=== PATIENT | female | born 1980 | race Caucasian/White ===

== ENCOUNTER 2016-06-28 23:14 | Observation (INO) | payer OTHER ==
[2016-06-28] MEDS ORDERED: MORPHINE SULFATE 4 MG INJ IV ONE (23:44)
[2016-06-28] MEDS ORDERED: Sodium Chloride 0.9% 1000 ML 1,000 ML IV STA (23:44)
[2016-06-28] MEDS ORDERED: Zofran 4 MG/2 ML VIAL IV ONE (23:44)
[2016-06-28] MEDS ORDERED: Zofran 4 MG/2 ML VIAL ONE (23:49)
[2016-06-28] MEDS ORDERED: Sodium Chloride 0.9% 1000 ML 1,000 ML ONE (23:49)
[2016-06-28] MEDS ORDERED: MORPHINE SULFATE 4 MG INJ ONE (23:49)
--- NOTE | 2016-06-28 23:50 | ERPHSYRPT ---
- History of Present Illness Time Seen by Provider: 06/28/16 23:41 Historian: patient Exam Limitations: no limitations Patient Subjective Stated Complaint: Pt sts RUQ pain x 6 months intermittent in nature, worsening recently. Sts since with RUQ pain that is constant and sharp. Pain waxes and wanes from 3-7/10. Pt sts nausea with pain. Pt denies vomiting. Sts intermittent diarrhea, sts x 1 today. Pt sts has an appt for galbladder U/S on Tuesday at 0830. Triage Nursing Assessment: Pt alert, oriented, answers all questions appropriately. SKin p/w/d, resps non-labored. pt ambulatory to tx room, steady gait noted. Pt holding rt side abd, grimacing in pain. Physician History: This is a 36-year-old white female previously healthy arrives with complaint of right upper quadrant pain symptoms going on for 6 months she states this pain has been intermittent however for the past 8 days it has been fairly constant and progressively worse. She states she was seen in [place] [facility] and has an appointment scheduled for a gallbladder ultrasound in 2 days. She states that she continues to have pain in the right upper quadrant she has nausea no vomiting she has no diarrhea. Patient has not had any fevers. Past medical history is positive for depression. Past surgical history patient denies. Last menstrual period 3 weeks ago Timing/Duration: other (pain intermittent for 6 months worse past 8 days) Activities at Onset: none Quality: cramping Abdominal Pain Onset Location: RUQ Pain Radiation: epigastric Severity of Pain-Max: moderate Severity of Pain-Current: moderate Modifying Factors: Improves With: nothing. Worsens With: analgesics, antacids, breathing, coughing, defecating, eating, exercise, lying down, movement, palpation, rest, vomiting, position, walking, other Associated Symptoms: diarrhea, nausea, No back, No chest pain, No diaphoresis, No fever/chills, No fatigue, No headache, No heartburn, No loss of appetite, No neck pain, No rash, No shortness of breath, No syncope, No vomiting, No weakness Previous symptoms: recently seen (seen today by nurse practitioner in [facility]) Allergies/Adverse Reactions: No Known Drug Allergies Allergy (Unverified 06/28/16 23:48) Home Medications: Escitalopram Oxalate [Lexapro] 0 mg PO DAILY 06/28/16 [History] Immunizations Up to Date: Yes - Review of Systems Constitutional: No Fever, No Chills Eyes: No Symptoms Ears, Nose, & Throat: No Symptoms, No Ear Pain, No Ear Discharge, No Hearing Changes, No Tinnitus, No Nose Pain, No Nose Congestion, No Nose Discharge, No Sinus Drainage, No Epistaxis, No Mouth Pain, No Mouth Swelling, No Loose Teeth, No Throat Pain, No Throat Swelling, No Hoarse, No Painful Swallowing, No Snoring , No Stridor Respiratory: No Cough, No Dyspnea Cardiac: No Chest Pain, No Edema, No Syncope Abdominal/Gastrointestinal: Abdominal Pain, Nausea, Diarrhea, No Vomiting, No Constipation, No Hematemesis, No Hematochezia, No Melena, No Dysphagia, No Appetite Changes Genitourinary Symptoms: No Dysuria Musculoskeletal: No Back Pain, No Neck Pain Skin: No Rash Neurological: No Dizziness, No Focal Weakness, No Sensory Changes Psychological: No Symptoms Endocrine: No Symptoms All Other Systems: Reviewed and Negative - Past Medical History Psycho-Social History: Depression - Past Surgical History Past Surgical History: No - Social History Smoking Status: Never smoker Exposure to second hand smoke: No Drug Use: none Patient Lives Alone: No - Female History Hx Last Menstrual Period: 3 weeks ago - Nursing Vital Signs Nursing Vital Signs: Initial Vital Signs Temperature 98.9 F Temperature Source Oral Pulse Rate 67 Respiratory Rate 18 Blood Pressure [] 96/61 Pain Intensity 7 - Physical Exam General Appearance: mild distress Eye Exam: PERRL/EOMI, eyes nml inspection Ears, Nose, Throat Exam: normal ENT inspection, pharynx normal, moist mucous membranes Neck Exam: normal inspection, non-tender, supple, full range of motion Respiratory Exam: normal breath sounds, lungs clear, No respiratory distress Cardiovascular Exam: regular rate/rhythm, normal heart sounds Gastrointestinal/Abdomen Exam: soft, normal bowel sounds, tenderness (right upper quadrant tenderness), No distention, No guarding, No ecchymosis, No pulsatile mass, No rebound, No hernia, No hepatomegaly, No organomegaly, No splenomegaly, No bruit Back Exam: normal inspection, normal range of motion, No CVA tenderness, No vertebral tenderness Extremity Exam: normal inspection, normal range of motion, pelvis stable Neurologic Exam: alert, oriented x 3, cooperative, conduit mechanic II-XII nml as tested, normal mood/affect, nml cerebellar function, sensation nml, No motor deficits Skin Exam: normal color, warm, dry SpO2 Interpretation: normal (99%) SpO2: 99 Oxygen Delivery: Room Air - Course Nursing assessment & vital signs reviewed: Yes - CT Exams Abdomen/Pelvis CT Interpretation: Tele-radiologist Report, Other (CT abdomen and pelvis: impression: probable cholecystitis) Ordered Tests: Active Orders 24 hr Category Date Time Status Clean Catch Urine Specimen STAT Care 06/29/16 00:20 Active IV Insertion STAT Care 06/28/16 23:44 Active ABDOMEN AND PELVIS W CONTRAST [CT] Stat Exams 06/29/16 00:35 Taken Medication Summary Discontinued Medications Generic Name Dose Route Start Last Admin Trade Name Freq PRN Reason Stop Dose Admin Sodium Chloride 1,000 mls @ 999 mls/hr 06/28/16 23:44 06/29/16 00:01 Sodium Chloride 0.9% 1000 Ml IV 06/29/16 00:44 999 mls/hr .Q1H1M STA Administration Sodium Chloride Confirm 06/28/16 23:49 Sodium Chloride 0.9% 1000 Ml Administered 06/28/16 23:50 Dose 1,000 mls @ ud .ROUTE .STK-MED ONE Morphine Sulfate 4 mg 06/28/16 23:44 06/29/16 00:03 Morphine Sulfate 4 Mg Inj IV 06/28/16 23:45 4 mg STAT ONE Administration Morphine Sulfate Confirm 06/28/16 23:49 Morphine Sulfate 4 Mg Inj Administered 06/28/16 23:50 Dose 4 mg .ROUTE .STK-MED ONE Ondansetron HCl 4 mg 06/28/16 23:44 06/29/16 00:03 Zofran 4 Mg/2 Ml Vial IV 06/28/16 23:45 4 mg STAT ONE Administration Ondansetron HCl Confirm 06/28/16 23:49 Zofran 4 Mg/2 Ml Vial Administered 06/28/16 23:50 Dose 4 mg .ROUTE .STK-MED ONE Lab/Rad Data: Laboratory Result Diagrams 06/28/16 00:00 06/28/16 00:00 Laboratory Results 06/28/16 06/28/16 06/28/16 Range/Units 00:00 00:00 00:00 WBC 7.5 (4.0-10.5) K/mm3 RBC 4.40 (4.1-5.4) M/mm3 Hgb 12.1 (12.0-16.0) gm/dl Hct 37.3 (35-47) % MCV 84.8 (78-100) fl MCH 27.5 (26-32) pg MCHC 32.4 (32-36) g/dl RDW 14.8 H (11.5-14.0) % Plt Count 244 (150-450) K/mm3 MPV 11.3 H (6-9.5) fl Gran % 59.4 (36.0-66.0) % Lymphocytes % 25.8 (24.0-44.0) % Monocytes % 10.0 (0.0-12.0) % Eosinophils % 4.3 (0.00-5.0) % Basophils % 0.5 (0.0-0.4) % Basophils # 0.04 (0-0.4) Sodium 142 (136-145) mEq/L Potassium 3.5 (3.5-5.1) mEq/L Chloride 108 H (98-107) mEq/L Carbon Dioxide 22.0 (21-32) mEq/L Anion Gap 15.8 H (5-15) MEQ/L BUN 8 L (9-20) mg/dL Creatinine 1.04 (0.55-1.30) mg/dl Estimated GFR > 60 ML/MIN Glucose 93 (70-110) MG/DL Calcium 8.5 (8.5-10.1) mg/dL Total Bilirubin 0.8 (0.2-1.0) mg/dL AST 409 H (15-37) U/L ALT 636 H (12-78) U/L Alkaline Phosphatase 184 H (46-116) U/L Serum Total Protein 7.0 (6.4-8.2) gm/dL Albumin 3.5 (3.4-5.0) g/dL Amylase 47 (25-115) U/L Lipase 123 (73-393) U/L Serum , Qual NEGATIVE (Negative) Ur Collection Type Urine Color (YELLOW) Urine Appearance (CLEAR) Urine pH (5-6) Ur Specific [place] (1.005-1.025) Urine Protein (Negative) Urine Glucose (UA) (NEGATIVE) mg/dL Urine Ketones (NEGATIVE) Urine Nitrite (NEGATIVE) Urine Bilirubin (NEGATIVE) Urine Urobilinogen (0-1) mg/dL Urine WBC (Auto) (NEGATIVE) Urine RBC (Auto) (0-5) Paul/ul Urine Microscopic RBC (0-2) /HPF Ur Epithelial Cells (FEW) /HPF Urine Bacteria (NEGATIVE) /HPF Urine Mucus (NEGATIVE) /HPF Specimen Received 06/28/16 Range/Units 00:00 WBC (4.0-10.5) K/mm3 RBC (4.1-5.4) M/mm3 Hgb (12.0-16.0) gm/dl Hct (35-47) % MCV (78-100) fl MCH (26-32) pg MCHC (32-36) g/dl RDW (11.5-14.0) % Plt Count (150-450) K/mm3 MPV (6-9.5) fl Gran % (36.0-66.0) % Lymphocytes % (24.0-44.0) % Monocytes % (0.0-12.0) % Eosinophils % (0.00-5.0) % Basophils % (0.0-0.4) % Basophils # (0-0.4) Sodium (136-145) mEq/L Potassium (3.5-5.1) mEq/L Chloride (98-107) mEq/L Carbon Dioxide (21-32) mEq/L Anion Gap (5-15) MEQ/L BUN (9-20) mg/dL Creatinine (0.55-1.30) mg/dl Estimated GFR ML/MIN Glucose (70-110) MG/DL Calcium (8.5-10.1) mg/dL Total Bilirubin (0.2-1.0) mg/dL AST (15-37) U/L ALT (12-78) U/L Alkaline Phosphatase (46-116) U/L Serum Total Protein (6.4-8.2) gm/dL Albumin (3.4-5.0) g/dL Amylase (25-115) U/L Lipase (73-393) U/L Serum , Qual (Negative) Ur Collection Type CLEAN CATCH Urine Color CASEY (YELLOW) Urine Appearance CLEAR (CLEAR) Urine pH 5.5 (5-6) Ur Specific [place] >=1.030 (1.005-1.025) Urine Protein NEGATIVE (Negative) Urine Glucose (UA) NEGATIVE (NEGATIVE) mg/dL Urine Ketones NEGATIVE (NEGATIVE) Urine Nitrite NEGATIVE (NEGATIVE) Urine Bilirubin SMALL (NEGATIVE) Urine Urobilinogen 4 (0-1) mg/dL Urine WBC (Auto) NEGATIVE (NEGATIVE) Urine RBC (Auto) SMALL (0-5) Paul/ul Urine Microscopic RBC 2-5 (0-2) /HPF Ur Epithelial Cells FEW (FEW) /HPF Urine Bacteria FEW (NEGATIVE) /HPF Urine Mucus SLIGHT (NEGATIVE) /HPF Specimen Received [id number] - Progress Progress: improved Progress Note: 06/29/16 00:35 36-year-old white female arrives with complaint of right upper quadrant pain intermittently going on for 6 months which has become much worse over the past 8 days. Patient states she is nauseous she is not vomiting she has had diarrhea. On physical examination she has tenderness with palpation right upper quadrant. Patient's white count is normal hemoglobin and hematocrit are normal chemistry is remarkable for elevated liver enzymes including AST, a LT, and alkaline phosphatase. Amylase and lipase are both normal. Electrolytes are essentially normal. Patient is feeling somewhat better with the IV normal saline and morphine. I've asked the patient if she is taking a lot of Tylenol she says she is not. Will go ahead and obtain a CT of the patient's abdomen and pelvis with contrast. 06/29/16 01:39 Patient improved with IV fluids and morphine. CT of the abdomen and pelvis with contrast shows the gallbladder appears hyperemic and somewhat thickened suggesting cholecystitis clinical correlation was recommended. Patient is tender in the right upper quadrant and has been having pain for several months which has been coming increasingly severe over the past few days. I've discussed the case with Dr. Danielson patient's family physician. Will give patient Rocephin 1 g IV we will obtain observation bed for medical surgery, will place patient on IV fluids morphine and Zofran. And obtain surgical consult in the morning - Departure Time of Disposition: 01:41 Departure Disposition: Observation Clinical Impression: Right upper quadrant abdominal pain, Cholecystitis, Elevated liver enzymes Condition: Fair Critical Care Time: No Referrals: JENNI DANIELSON [Primary Care Provider] -
[2016-06-29 00:05] LABS: BASOPHIL % 0.5 % (0.0-0.4); Eosinophil % 4.3 % (0.00-5.0); Granulocytes % 59.4 % (36.0-66.0); Lymphocytes % 25.8 % (24.0-44.0); Mean Cell Volume 84.8 fl (78-100); Mean Corpuscular Hemoglobin 27.5 pg (26-32); Mean Platelet Volume 11.3 fl (6-9.5); Platelet Count 244 K/mm3 (150-450); Red Cell Distribution Width 14.8 % (11.5-14.0); White Blood Count 7.5 K/mm3 (4.0-10.5)
[2016-06-29 00:25] LABS: Collection Type CLEAN CATCH; Ph 5.5 (5-6)
[2016-06-29 00:26] LABS: ALBUMIN 3.5 g/dL (3.4-5.0); ALKALINE PHOSPHATASE 184 U/L (46-116); ANION GAP 15.8 MEQ/L (5-15); BILIRUBIN,TOTAL 0.8 mg/dL (0.2-1.0); BLOOD UREA NITROGEN 8 mg/dL (9-20); Bacteria FEW /HPF (NEGATIVE); CHLORIDE 108 mEq/L (98-107); COMPLETE URINE MICROSCOPIC? YES; Epithelial Cells FEW /HPF (FEW); Glucose 93 MG/DL (70-110); LIPASE 123 U/L (73-393); Mucus SLIGHT /HPF (NEGATIVE); Potassium 3.5 mEq/L (3.5-5.1); SGOT/AST 409 U/L (15-37); SGPT/ALT 636 U/L (12-78); SODIUM 142 mEq/L (136-145)
[2016-06-29] MEDS ORDERED: ROCEPHIN 1 Gm-D5w 50 ml Bag** 50 ML IV ONE ×2 (01:42→01:50)
[2016-06-29] MEDS ORDERED: Zofran 4 MG/2 ML VIAL IV PRN (02:11)
[2016-06-29] MEDS: D5W/0.45NS W/ 20mEq KCl 1000 ML 1,000 ML IV SCH ×2 (03:21→12:32)
[2016-06-29] MEDS: MORPHINE SULFATE 4 MG INJ IV PRN ×3 (05:06→16:12)
[2016-06-29 05:59] LABS: ALBUMIN 3.1 g/dL (3.4-5.0); ALKALINE PHOSPHATASE 174 U/L (46-116); ANION GAP 13.9 MEQ/L (5-15); BILIRUBIN,TOTAL 0.9 mg/dL (0.2-1.0); BLOOD UREA NITROGEN 6 mg/dL (9-20); CHLORIDE 107 mEq/L (98-107); Glucose 107 MG/DL (70-110); LIPASE 96 U/L (73-393); Potassium 3.7 mEq/L (3.5-5.1); SGOT/AST 398 U/L (15-37); SGPT/ALT 612 U/L (12-78); SODIUM 141 mEq/L (136-145); Total Protein 6.5 gm/dL (6.4-8.2)
[2016-06-29 06:01] LABS: BASOPHIL % 0.5 % (0.0-0.4); Granulocytes % 61.5 % (36.0-66.0); Lymphocytes % 26.6 % (24.0-44.0); Mean Cell Volume 86.1 fl (78-100); Mean Platelet Volume 11.9 fl (6-9.5); Monocytes % 7.4 % (0.0-12.0); Platelet Count 228 K/mm3 (150-450); Red Blood Count 4.25 M/mm3 (4.1-5.4); Red Cell Distribution Width 14.9 % (11.5-14.0); White Blood Count 6.2 K/mm3 (4.0-10.5)
[2016-06-29 06:23] LABS: Mean Corpuscular Hemoglobin 27.2 pg (26-32)
--- NOTE | 2016-06-29 08:15 | PCM.HP ---
History of Present Illness - Chief Complaint Chief Complaint: RUQ PAIN, CHOLECYSTITIES, ELEVATED LIVER ENZYMES History of Present Illness: is a 36 year old female pt of [facility] c/o 6 mo of intermittent RUQ/epigastric pain. It got much worse 4 d ago and she was unable to eat for the past 3 days. Pain was 2-8/10, sharp, waxing/waning and radiating to the back. Some occasional chest pain with the epigastric pain. No SOB. Temp to 99.9. Came to ER yesterday, found to have elevated LFTs and cholecystitis. Admitted for IVF, pain control, and surgery consult. Pain is better on pain meds. No vomiting since admission. - Review of Systems Respiratory: Short Of Breath Cardiac: Chest Pain (occ with the epigastric pain) Abdominal/Gastrointestinal: Abdominal Pain, Nausea, Vomiting, Diarrhea, Appetite Changes Psychological: Depression, No Suicidal Ideations All Other Systems: Reviewed and Negative Medications & Allergies Home Medications: Home Medication List Acetaminophen 325 mg [Tylenol 325 mg] 650 mg PO Q4HPRN PRN 06/29/16 [ History Confirmed 06/29/16] Citalopram Hydrobromide [ceLEXa] 40 mg PO DAILY 06/29/16 [History Confirmed 11/07] Ondansetron [Ondansetron Odt] 4 mg PO Q8HPRN PRN 06/29/16 [History Confirmed 11/07] Ranitidine HCl [Zantac] 150 mg PO BID 06/29/16 [History Confirmed 06/29/16] Allergies/Adverse Reactions: Allergies Allergy/AdvReac Type Severity Reaction Status Date / Time No Known Drug Allergies Allergy Verified 06/29/16 03:12 - Past Medical History Past Medical History: Yes Neurological History: Migraines ENT History: No Pertinent History Cardiac History: No Pertinent History Respiratory History: No Pertinent History Endocrine Medical History: No Pertinent History Musculoskelatal History: No Pertinent History GI Medical History: No Pertinent History History: No Pertinent History Pyscho-Social History: Depression Reproductive Disorders: No Pertinent History - Female History Hx Last Menstrual Period: 3 weeks ago Are you now?: No - Past Surgical History Past Surgical History: No - Social History Smoking Status: Former smoker Exposure to second hand smoke: No Alcohol: None Drug Use: none - Physical Exam Vital Signs: Vital Signs - 24 hr Temp Pulse Resp BP Pulse Ox 06/29/16 07:29 98.6 F 68 18 129/76 97 06/29/16 07:00 98.6 F 68 18 129/76 97 06/29/16 04:00 98.1 F 61 18 102/64 95 06/29/16 02:36 97.4 F 67 18 118/78 06/29/16 01:48 65 20 104/68 96 06/29/16 01:42 99 06/29/16 01:27 67 18 96/61 97 06/29/16 00:06 58 L 16 100/55 95 06/28/16 23:19 98.9 F 74 16 119/63 99 General Appearance: no apparent distress Neurologic Exam: alert, oriented x 3, cooperative Eye Exam: eyes nml inspection Neck Exam: normal inspection, non-tender, No lymphadenopathy Respiratory Exam: normal breath sounds, lungs clear, No crackles/rales, No rhonchi, No wheezing Cardiovascular Exam: regular rate/rhythm, normal heart sounds, No murmur Gastrointestinal/Abdomen Exam: soft, normal bowel sounds, tenderness (epigastrum , RUQ), No guarding, No rebound Back Exam: normal inspection, No CVA tenderness Extremity Exam: normal inspection, No pedal edema, No swelling Skin Exam: normal color, warm, dry Results - Labs Lab/Micro Results: Lab Results-Last 24 Hours 06/29/16 06/29/16 Range/Units 05:10 05:10 WBC 6.2 (4.0-10.5) K/mm3 RBC 4.25 (4.1-5.4) M/mm3 Hgb 11.6 L (12.0-16.0) gm/dl Hct 36.6 (35-47) % MCV 86.1 (78-100) fl MCH 27.2 (26-32) pg MCHC 31.7 L (32-36) g/dl RDW 14.9 H (11.5-14.0) % Plt Count 228 (150-450) K/mm3 MPV 11.9 H (6-9.5) fl Gran % 61.5 (36.0-66.0) % Lymphocytes % 26.6 (24.0-44.0) % Monocytes % 7.4 (0.0-12.0) % Eosinophils % 4.0 (0.00-5.0) % Basophils % 0.5 (0.0-0.4) % Basophils # 0.03 (0-0.4) Sodium 141 (136-145) mEq/L Potassium 3.7 (3.5-5.1) mEq/L Chloride 107 (98-107) mEq/L Carbon Dioxide 24.0 (21-32) mEq/L Anion Gap 13.9 (5-15) MEQ/L BUN 6 L (9-20) mg/dL Creatinine 0.93 (0.55-1.30) mg/dl Estimated GFR > 60 ML/MIN Glucose 107 (70-110) MG/DL Calcium 7.9 L (8.5-10.1) mg/dL Total Bilirubin 0.9 (0.2-1.0) mg/dL AST 398 H (15-37) U/L ALT 612 H (12-78) U/L Alkaline Phosphatase 174 H (46-116) U/L Serum Total Protein 6.5 (6.4-8.2) gm/dL Albumin 3.1 L (3.4-5.0) g/dL Amylase 42 (25-115) U/L Lipase 96 (73-393) U/L Assessment/Plan (1) Cholecystitis Current Visit: Yes Status: Acute Assessment & Plan: Surgery consulted, thank you. Pt is on IV rocephin. Code(s): K81.9 - CHOLECYSTITIS, UNSPECIFIED (2) Elevated liver enzymes Current Visit: Yes Status: Acute Assessment & Plan: slight improvement this morning. Code(s): R74.8 - ABNORMAL LEVELS OF OTHER SERUM ENZYMES
--- NOTE | 2016-06-29 08:58 | XRAY ---
Indication: Right upper quadrant pain. Multiple contiguous axial images obtained through the abdomen and pelvis using 80 cc Isovue 370 contrast only. Comparison: None Lung bases demonstrates minimal bibasilar dependent atelectasis. Heart is not enlarged. Stomach is fluid distended. Noncontrasted bowel loops appear nonobstructed. Normal appendix. No free fluid/air. Multiple bilateral pelvic phleboliths. Gallbladder demonstrates abnormal wall thickening/enhancement with tiny pericholecystic fluid but no gallstones favoring acalculous cholecystitis. No abnormal biliary distention. Remaining liver, pancreas, spleen, adrenal glands, kidneys, ureters, bladder, uterus, and aorta appear unremarkable. No pathologic retroperitoneal lymphadenopathy. Osseous structures intact. Impression: CT features as described favoring acalculous cholecystitis. Comment: Preliminary interpretation was made by [facility]. No discrepancy. CT DI 23.27
[2016-06-29] MEDS ORDERED: ceLEXa 20 MG PO SCH (10:00)
[2016-06-29] MEDS ORDERED: Pepcid 20 MG PO SCH (10:00)
[2016-06-29] MEDS ORDERED: NON-FORMULARY ITEM (Citalopram Hydrobromide [Celexa] 40 MG) PO SCH (10:00)
[2016-06-29 11:50] VITALS: O2SAT 99
[2016-06-29] MEDS ORDERED: Pepcid 20 MG VIAL IV SCH (14:45)
[2016-06-29] MEDS ORDERED: Sensorcaine 0.25% 10 ML ONE (14:50)
[2016-06-29] MEDS ORDERED: Lactated Ringers 1,000 ML IV ONE (14:50)
[2016-06-29] MEDS ORDERED: Lactated Ringers 1,000 ML IV SCH (15:00)
[2016-06-29] MEDS ORDERED: MEFOXIN 2 GM PREMIX** 50 ML IV SCH (15:00)
--- NOTE | 2016-06-29 15:29 | CONS ---
CONSULT DATE: 06/29/2016 I just found out about this. The patient was apparently admitted during the night. It does not sound like Dr. Guan who was sheet rock installation helper was called. Our office was not called. I was on my way down here to do another procedure and they told us about the surgical consult. HISTORY: Unfortunately, we were not notified of the patient earlier. White blood cell count 6.2, hemoglobin 11.6, PLT 228,000. ALT is 612, AST 398, bilirubin 0.9, alkaline phosphatase elevated at 74. Amylase and lipase were okay. She had a CT scan that did not show any stones, had a little bit of wall thickening. Apparently she did not have an ultrasound done this morning. PAST MEDICAL HISTORY: She denies any chronic illnesses. She had some depression in the past. PAST SURGICAL HISTORY: She denies any. HOME MEDICATIONS: She has been on Lexapro. ALLERGIES: NKDA. FAMILY HISTORY: Negative in regards to this problem. SOCIAL HISTORY: No smoking or alcohol abuse. REVIEW OF SYSTEMS: Twelve systems reviewed per admission assessment. PHYSICAL EXAMINATION: GENERAL: No acute distress. HEENT: Sclera nonicteric. NECK: No JVD. CHEST: Equal excursion, nonlabored breathing. CVS: Regular rate and rhythm. ABDOMEN: Soft, some mild tenderness epigastrium right upper quadrant. No peritoneal signs. EXTREMITIES: No edema. NEURO: Alert, moving extremities symmetrically. No gross motor deficits noted. IMPRESSION: Acute abdominal pain question biliary colic, question cholecdocholithiasis, acute exacerbation of chronic cholecystitis but her symptoms has been going on for six months, or whether she otherwise has hepatitis or other etiology is unclear. She needs ultrasound. She ERCP. She very well may need transferred to [facility] for ERCP availability. Otherwise eventually if she does have gallstones and her duct is clear eventually down the road consider cholecystectomy. Risk of bleeding, infection, trocar injury or hernia, small risk of bowel, bladder, blood vessel injury, small risk of bile leak, bile duct injury, retained stone or sludge possibly requiring further procedure either open or ERCP, general risk of anesthesia, deep venous thrombosis, pulmonary embolism, pneumonia, risk of aches, pains, bloating, constipation and/or loose stools but not limited to. She understands. Will check a STAT ultrasound of the gallbladder, STAT ERCP and she may need transfer to [facility]. Again, we were not notified of this patient until now.
--- NOTE | 2016-06-29 15:52 | XRAY ---
Indication: Right upper quadrant pain. Cholecystitis suggested on same-day CT abdomen/pelvis study. Elevated liver enzymes. Conventional MRCP performed. Comparison: None Gallbladder normally distended with wall thickening up to 4 mm with tiny pericholecystic fluid. A few tiny gravel/sludge in the dependent portion near the neck of the gallbladder. No abnormal intra-or extrahepatic biliary distention. Pancreatic duct not distended. Remaining visualized portions of the liver, pancreas, spleen, adrenal glands, kidneys, aorta, and IVC appear unremarkable. Visualized stomach and bowel loops appear nonobstructed. No free fluid. Impression: Tiny gravel/sludge with wall thickening and pericholecystic fluid favoring acute cholecystitis. No abnormal biliary distention or choledochal stone.
--- NOTE | 2016-06-29 15:54 | XRAY ---
Indication: Right upper quadrant pain. Two-dimensional right upper quadrant abdominal sonogram performed. Comparison: None Gallbladder normally distended with tiny gallstones/gravel in the dependent portion. Gallbladder wall is thickened measuring 4.3 mm. No pericholecystic fluid. Common bile duct measures 4.3 mm. Remaining visualized portions of the liver, pancreas, and right kidney appear sonographically normal. Right kidney measures 10.1 cm in length. No ascites. Impression: Tiny gallstones/gravel with wall thickening favoring cholecystitis.
[2016-06-29 16:27] VITALS: BP 134/89; PULSE 69
== END 2016-06-29 19:17 | disposition short-term general hospital (02) ==
LOC: ED 23:14 → MED SURG 06-29 02:03
PROVIDERS: ADMIT Family Medicine; ATTEND Family Medicine
DX: K81.9 Cholecystitis, unspecified (principal); R74.8 Abnormal levels of other serum enzymes; Z79.899 Other long term (current) drug therapy
CPT/HCPCS: 36000; 36415; 74177; 74181; 76705; 80053; 81000; 82150; 83690; 84484; 84703; 85025; 96360; 96361; 96365; 96374; 96375; 99285; G0378; J0694; J0696; J2270; J2405; A9270-GY

== ENCOUNTER 2018-03-08 09:39 | Emergency (ER) | payer OTHER ==
[2018-03-08] MEDS ORDERED: Sodium Chloride 0.9% 1000 ML 1,000 ML IV STA (10:45)
[2018-03-08 11:09] LABS: Appearance SLIGHTLY CLOUDY (CLEAR); Bacteria RARE /HPF (NEGATIVE); Bilirubin NEGATIVE (NEGATIVE); Blood SMALL Ery/ul (0-5); Epithelial Cells FEW /HPF (FEW); Glucose NEGATIVE (NEGATIVE); Hyaline Casts 0-2 /LPF (0-2); Ketones NEGATIVE (NEGATIVE); Leukocyte Esterase NEGATIVE (NEGATIVE); Mucus SLIGHT /HPF (NEGATIVE); Nitrite NEGATIVE (NEGATIVE); Protein,Urine Dip NEGATIVE (Negative); RBC 0-2 /HPF (0-2); Specific Gravity 1.001 (1.005-1.025); Urobilinogen NEGATIVE mg/dL (0-1)
[2018-03-08] MEDS ORDERED: Sodium Chloride 0.9% 1000 ML 1,000 ML ONE (11:16)
[2018-03-08 11:21] VITALS: O2SAT 98
[2018-03-08] MEDS ORDERED: Phenergan 25 MG INJ IV ONE (11:24)
[2018-03-08] MEDS ORDERED: Phenergan 25 MG INJ ONE (11:28)
--- NOTE | 2018-03-08 11:28 | ERPHSYRPT ---
- History of Present Illness Time Seen by Provider: 03/08/18 11:24 Historian: patient Exam Limitations: no limitations Patient Subjective Stated Complaint: STATES DEVELOPED LEFT LATERAL SIDE PAIN ONE MONTH AGO AND IT GOT WORSE YESTERDAY WITH SWELLING. ALSO HAVING SOME NAUSEA. Triage Nursing Assessment: AMBULATED TO ROOM PER SELF. SKIN W/D, COLOR NORMAL, RESP EASY. HOLDING LEFT SIDE. LEFT SIDE TENDER, SLIGHT SWELLING NOTED. INCREASE PAIN WITH MOVEMENT. Physician History: 37-year-old white female with history of migraines and depression Patient arrives with complaint of pain in her left lateral lower side states she feels swollen symptoms for one month worse today No vomiting no diarrhea. Past medical history includes migraines, depression. Past surgical history includes cholecystectomy. Social history patient denies tobacco alcohol or illicit drug use Timing/Duration: other (symptoms for a month worse today) Quality: aching, cramping Abdominal Pain Onset Location: LLQ, other (left lateral side) Pain Radiation: no radiation Severity of Pain-Max: moderate Severity of Pain-Current: moderate Modifying Factors: Improves With: movement Associated Symptoms: No back, No chest pain, No diaphoresis, No diarrhea, No fever/chills, No fatigue, No headache, No heartburn, No loss of appetite, No nausea, No neck pain, No rash, No shortness of breath, No syncope, No vomiting, No weakness Previous symptoms: no prior history Allergies/Adverse Reactions: No Known Drug Allergies Allergy (Verified 03/08/18 09:54) Home Medications: Fluoxetine HCl [Prozac] 40 mg PO DAILY 03/08/18 [History] Hx Tetanus, Diphtheria Vaccination/Date Given: Yes Hx Influenza Vaccination/Date Given: Yes Hx Pneumococcal Vaccination/Date Given: No Immunizations Up to Date: No - Review of Systems Constitutional: No Fever, No Chills Eyes: No Symptoms Ears, Nose, & Throat: No Symptoms Respiratory: No Cough, No Dyspnea Cardiac: No Chest Pain, No Edema, No Syncope Abdominal/Gastrointestinal: Abdominal Pain (left lateral abdominal pain more on side), No Nausea, No Vomiting, No Diarrhea, No Constipation, No Hematemesis, No Hematochezia, No Melena, No Dysphagia, No Appetite Changes Genitourinary Symptoms: No Dysuria Musculoskeletal: No Back Pain, No Neck Pain Skin: No Rash Neurological: No Dizziness, No Focal Weakness, No Sensory Changes Psychological: No Symptoms Endocrine: No Symptoms All Other Systems: Reviewed and Negative - Past Medical History Pertinent Past Medical History: Yes Neurological History: Migraines ENT History: No Pertinent History Cardiac History: No Pertinent History Respiratory History: No Pertinent History Endocrine Medical History: No Pertinent History Musculoskeletal History: No Pertinent History GI Medical History: No Pertinent History History: No Pertinent History Psycho-Social History: Depression Female Reproductive Disorders: No Pertinent History - Past Surgical History Past Surgical History: Yes Gastrointestinal: Cholecystectomy - Social History Smoking Status: Never smoker Exposure to second hand smoke: No Drug Use: none Patient Lives Alone: No - Female History Hx Last Menstrual Period: TWO WEEKS AGO Hx Now: No - Nursing Vital Signs Nursing Vital Signs: Initial Vital Signs Temperature 98.7 F 03/08/18 09:44 Pulse Rate 84 03/08/18 09:44 Respiratory Rate 16 03/08/18 09:44 Blood Pressure 157/82 03/08/18 09:44 O2 Sat by Pulse Oximetry 99 03/08/18 09:44 Pain Scale Pain Intensity 5 - Physical Exam General Appearance: mild distress Eye Exam: PERRL/EOMI, eyes nml inspection Ears, Nose, Throat Exam: normal ENT inspection, pharynx normal, moist mucous membranes Neck Exam: normal inspection, non-tender, supple, full range of motion Respiratory Exam: normal breath sounds, lungs clear, No respiratory distress Cardiovascular Exam: regular rate/rhythm, normal heart sounds, capillary refill <2 sec Gastrointestinal/Abdomen Exam: soft, normal bowel sounds, tenderness (tender left lateral abdomen with palpation), other (left lower lateral abdomen firm and tender with palpation.) Back Exam: normal inspection, normal range of motion, No CVA tenderness, No vertebral tenderness Extremity Exam: normal inspection, normal range of motion, pelvis stable Neurologic Exam: alert, oriented x 3, cooperative, 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 Status post cholecyst without complications) Ordered Tests: Active Orders 24 hr Category Date Time Status IV Insertion STAT Care 03/08/18 10:45 Active ABDOMEN AND PELVIS W CONTRAST [CT] Stat Exams 03/08/18 12:04 Completed AMYLASE Stat Lab 03/08/18 11:10 Completed CBC W DIFF Stat Lab 03/08/18 11:10 Completed CMP Stat Lab 03/08/18 11:10 Completed HCG QUALITATIVE,SERUM Stat Lab 03/08/18 11:10 Completed LIPASE Stat Lab 03/08/18 11:10 Completed UA W/RFX UR CULTURE Stat Lab 03/08/18 10:56 Completed Medication Summary Discontinued Medications Generic Name Dose Route Start Last Admin Trade Name Freq PRN Reason Stop Dose Admin Sodium Chloride 1,000 mls @ 999 mls/hr 03/08/18 10:45 03/08/18 12:27 Sodium Chloride 0.9% 1000 Ml IV 03/08/18 11:45 Infused .Q1H1M STA Infusion Sodium Chloride Confirm 03/08/18 11:16 Sodium Chloride 0.9% 1000 Ml Administered 03/08/18 11:17 Dose 1,000 mls @ ud .ROUTE .STK-MED ONE Promethazine HCl 12.5 mg 03/08/18 11:24 03/08/18 11:54 Phenergan 25 Mg Inj IV 03/08/18 11:25 12.5 mg STAT ONE Administration Promethazine HCl Confirm 03/08/18 11:28 Phenergan 25 Mg Inj Administered 03/08/18 11:29 Dose 25 mg .ROUTE .STK-MED ONE Lab/Rad Data: Laboratory Result Diagrams 03/08/18 11:10 03/08/18 11:10 Laboratory Results 03/08/18 03/08/18 03/08/18 Range/Units 11:10 11:10 11:10 WBC 6.5 (4.0-10.5) K/mm3 RBC 4.58 (4.1-5.4) M/mm3 Hgb 12.7 (12.0-16.0) gm/dl Hct 39.2 (35-47) % MCV 85.6 (78-100) fl MCH 27.7 (26-32) pg MCHC 32.4 (32-36) g/dl RDW 14.0 (11.5-14.0) % Plt Count 240 (150-450) K/mm3 MPV 11.4 H (6-9.5) fl Gran % 54.5 (36.0-66.0) % Eos # (Auto) 0.39 (0-0.5) Absolute Lymphs (auto) 2.01 (1.0-4.6) Absolute Monos (auto) 0.55 (0.0-1.3) Lymphocytes % 30.8 (24.0-44.0) % Monocytes % 8.4 (0.0-12.0) % Eosinophils % 6.0 H (0.00-5.0) % Basophils % 0.3 (0.0-0.4) % Absolute Granulocytes 3.56 (1.4-6.9) Basophils # 0.02 (0-0.4) Sodium 142 (137-145) mmol/L Potassium 3.6 (3.5-5.1) mmol/L Chloride 106 (98-107) mmol/L Carbon Dioxide 26 (22-30) mmol/L Anion Gap 14.0 (5-15) MEQ/L BUN 8 (7-17) mg/dL Creatinine 0.71 (0.52-1.04) mg/dL Estimated GFR > 60.0 ML/MIN Glucose 75 (74-106) mg/dL Calcium 9.3 (8.4-10.2) mg/dL Total Bilirubin 0.50 (0.2-1.3) mg/dL AST 64 H (14-36) U/L ALT 63 H (0-35) U/L Alkaline Phosphatase 87 (38-126) U/L Serum Total Protein 8.2 (6.3-8.2) g/dL Albumin 4.7 (3.5-5.0) g/dL Amylase 59 (30-110) U/L Lipase 39 (23-300) U/L Serum , Qual NEGATIVE (Negative) Urine Color (YELLOW) Urine Appearance (CLEAR) Urine pH (5-6) Ur Specific Monette (1.005-1.025) Urine Protein (Negative) Urine Ketones (NEGATIVE) Urine Blood (0-5) Paul/ul Urine Nitrite (NEGATIVE) Urine Bilirubin (NEGATIVE) Urine Urobilinogen (0-1) mg/dL Ur Leukocyte Esterase (NEGATIVE) Urine WBC (Auto) (0-5) /HPF Urine RBC (Auto) (0-2) /HPF U Hyaline Cast (Auto) (0-2) /LPF U Epithel Cells (Auto) (FEW) /HPF Urine Bacteria (Auto) (NEGATIVE) /HPF Urine Mucus (Auto) (NEGATIVE) /HPF Urine Culture Reflexed (NO) Urine Glucose (NEGATIVE) mg/dL 03/08/18 Range/Units 10:56 WBC (4.0-10.5) K/mm3 RBC (4.1-5.4) M/mm3 Hgb (12.0-16.0) gm/dl Hct (35-47) % MCV (78-100) fl MCH (26-32) pg MCHC (32-36) g/dl RDW (11.5-14.0) % Plt Count (150-450) K/mm3 MPV (6-9.5) fl Gran % (36.0-66.0) % Eos # (Auto) (0-0.5) Absolute Lymphs (auto) (1.0-4.6) Absolute Monos (auto) (0.0-1.3) Lymphocytes % (24.0-44.0) % Monocytes % (0.0-12.0) % Eosinophils % (0.00-5.0) % Basophils % (0.0-0.4) % Absolute Granulocytes (1.4-6.9) Basophils # (0-0.4) Sodium (137-145) mmol/L Potassium (3.5-5.1) mmol/L Chloride (98-107) mmol/L Carbon Dioxide (22-30) mmol/L Anion Gap (5-15) MEQ/L BUN (7-17) mg/dL Creatinine (0.52-1.04) mg/dL Estimated GFR ML/MIN Glucose (74-106) mg/dL Calcium (8.4-10.2) mg/dL Total Bilirubin (0.2-1.3) mg/dL AST (14-36) U/L ALT (0-35) U/L Alkaline Phosphatase (38-126) U/L Serum Total Protein (6.3-8.2) g/dL Albumin (3.5-5.0) g/dL Amylase (30-110) U/L Lipase (23-300) U/L Serum , Qual (Negative) Urine Color COLORLESS (YELLOW) Urine Appearance SLIGHTLY CLOUDY (CLEAR) Urine pH 6.0 (5-6) Ur Specific Monette 1.001 (1.005-1.025) Urine Protein NEGATIVE (Negative) Urine Ketones NEGATIVE (NEGATIVE) Urine Blood SMALL (0-5) Paul/ul Urine Nitrite NEGATIVE (NEGATIVE) Urine Bilirubin NEGATIVE (NEGATIVE) Urine Urobilinogen NEGATIVE (0-1) mg/dL Ur Leukocyte Esterase NEGATIVE (NEGATIVE) Urine WBC (Auto) NONE (0-5) /HPF Urine RBC (Auto) 0-2 (0-2) /HPF U Hyaline Cast (Auto) 0-2 (0-2) /LPF U Epithel Cells (Auto) FEW (FEW) /HPF Urine Bacteria (Auto) RARE (NEGATIVE) /HPF Urine Mucus (Auto) SLIGHT (NEGATIVE) /HPF Urine Culture Reflexed NO (NO) Urine Glucose NEGATIVE (NEGATIVE) mg/dL - Progress Progress: improved Progress Note: 03/08/18 13:28 37-year-old white female arrives with complaint of pain in her left lateral abdomen symptoms for one month. She feels like the area is hard with palpation she has not had any nausea no vomiting. I've ordered CT of the abdomen and pelvis with contrast, this is essentially normal. Patient was given IV normal saline Phenergan. CBC CMP hCG UA essentially normal. Will discharge patient will write for a small amount of Abrams for pain. Patient will need to follow-up with her family doctor. 03/08/18 13:37 Inspect report queried on this patient no evidence of narcotic abuse or recurrent narcotic prescriptions - Departure Time of Disposition: 13:29 Departure Disposition: Home Clinical Impression: Abdominal pain Qualifiers: Abdominal location: unspecified location Qualified Code(s): R10.9 - Unspecified abdominal pain Condition: Fair Critical Care Time: No Referrals: JENNI MCNAMARA [Primary Care Provider] - Additional Instructions: Return home. Cold packs to area 24-48 hours. Abrams as prescribed for pain. Follow-up with your family doctor. Clear fluids only 24-48 hours if abdominal pain. Return for acute distress or for severe symptoms. Prescriptions: Hydrocodone/APAP 5-325 Tab^^^ [Abrams 5-325 Tablet^^^] 1 tab PO Q4-6HPRN PRN #10 tablet MDD 6 PRN Reason: Pain
[2018-03-08 11:48] LABS: BASOPHIL % 0.3 % (0.0-0.4); Basophil (Absolute #) 0.02 (0-0.4); Eosinophil (Absolute #) 0.39 (0-0.5); Granulocytes % 54.5 % (36.0-66.0); Hematocrit 39.2 % (35-47); Hemoglobin 12.7 gm/dl (12.0-16.0); Lymphocyte (Absolute #) 2.01 (1.0-4.6); Lymphocytes % 30.8 % (24.0-44.0); Mean Cell Volume 85.6 fl (78-100); Mean Corpuscular Hemoglobin 27.7 pg (26-32); Mean Corpuscular Hgb Concent. 32.4 g/dl (32-36); Mean Platelet Volume 11.4 fl (6-9.5); Monocyte (Absolute #) 0.55 (0.0-1.3); Monocytes % 8.4 % (0.0-12.0); Platelet Count 240 K/mm3 (150-450); Red Blood Count 4.58 M/mm3 (4.1-5.4); White Blood Count 6.5 K/mm3 (4.0-10.5)
[2018-03-08 11:50] LABS: ALBUMIN 4.7 g/dL (3.5-5.0); ALKALINE PHOSPHATASE 87 U/L (38-126); AMYLASE 59 U/L (30-110); BLOOD UREA NITROGEN 8 mg/dL (7-17); CHLORIDE 106 mmol/L (98-107); Calcium 9.3 mg/dL (8.4-10.2); Carbon Dioxide 26 mmol/L (22-30); Creatinine 1 0.71 mg/dL (0.52-1.04); Glucose 75 mg/dL (74-106); LIPASE 39 U/L (23-300); SGOT/AST 64 U/L (14-36); SGPT/ALT 63 U/L (0-35); SODIUM 142 mmol/L (137-145); Total Protein 8.2 g/dL (6.3-8.2)
[2018-03-08 11:52] LABS: Potassium 3.6 mmol/L (3.5-5.1)
--- NOTE | 2018-03-08 13:17 | XRAY ---
Indication: Right abdominal pain. Status post cholecystectomy 18 months ago. Multiple contiguous axial images obtained through the abdomen and pelvis using 80 cc Isovue 370 contrast only. Comparison: June 29, 2016. Lung bases demonstrates minimal bibasilar dependent atelectasis. No infiltrate or effusion. Heart is not enlarged. Noncontrasted stomach and bowel loops appear nonobstructed. Normal appendix. Mild splenic flexure colonic diverticulosis without diverticulitis. Interval cholecystectomy. No free fluid/air. Remaining liver, pancreas, spleen, adrenal glands, kidneys, ureters, bladder, and aorta appear normal in CT appearance and attenuation. No pathologic retroperitoneal lymphadenopathy. Osseous structures intact. No ventral or inguinal hernias. Impression: 1. Status post cholecystectomy without complications. 2. Mild colonic diverticulosis. 3. Remaining CT abdomen/pelvis with contrast exam is negative. CT DI 22.85
[2018-03-08 14:02] VITALS: BP 121/74; PULSE 73
== END 2018-03-08 14:01 | disposition home or self-care (01) ==
LOC: ED 09:39
DX: R10.32 Left lower quadrant pain (principal); F32.9 Major depressive disorder, single episode, unspecified
CPT/HCPCS: 36000; 36415; 74177; 80053; 81001; 81025; 82150; 83690; 85025; 96360; 96374; 99284; J2550

== ENCOUNTER 2020-05-10 00:44 | Emergency (ER) | payer OTHER ==
[2020-05-10] MEDS ORDERED: Nitrostat 0.4 MG (ED) SL ONE ×2 (01:05→01:10)
[2020-05-10] MEDS ORDERED: BABY ASPIRIN 81 MG CHEW PO ONE (01:05)
[2020-05-10] MEDS ORDERED: BABY ASPIRIN 81 MG CHEW ONE (01:10)
--- NOTE | 2020-05-10 01:11 | ERPHSYRPT ---
- History of Present Illness Time Seen by Provider: 05/10/20 01:00 Historian: patient Exam Limitations: no limitations Physician History: Patient is a 39-year-old female with no real medical history except for depression that presents with sharp upper back pain that radiate towards the front to her mid chest. Moderate at the time but proved currently. Did make patient short of breath but denies any diaphoresis or cough. Denies fever or any symptoms. She stated that she had this upper back pain between the shoulders couple of days ago which resolved. It appeared to come back but now radiated towards the front which concerned her. Patient has had cholecystect fadi. Denies any chronic medical problems. No high blood pressure. No smoking. No high cholesterol. Timing/Duration: today Activities at Onset: rest Quality: sharpness, tightness Location: substernal, back Chest Pain Radiation: no radiation Severity of Pain-Max: moderate Severity of Pain-Current: mild Modifying Factors: Improves With: nothing Associated Symptoms: shortness of breath, back pain Prior Chest Pain/Cardiac Workup: no prior chest pain Nitro Today/Relief: no nitro taken today Aspirin Treatment Today: no aspirin today Allergies/Adverse Reactions: No Known Drug Allergies Allergy (Verified 05/10/20 00:47) Home Medications: Fluoxetine HCl [Prozac] 40 mg PO DAILY 03/08/18 [History] Hx Tetanus, Diphtheria Vaccination/Date Given: Yes Hx Influenza Vaccination/Date Given: Yes Hx Pneumococcal Vaccination/Date Given: No - Review of Systems Constitutional: No Fever, No Chills Eyes: No Symptoms Ears, Nose, & Throat: No Symptoms Respiratory: Dyspnea, No Cough Cardiac: Chest Pain, No Edema, No Syncope Abdominal/Gastrointestinal: No Abdominal Pain, No Nausea, No Vomiting, No Diarrhea Genitourinary Symptoms: No Dysuria Musculoskeletal: Back Pain, No Neck Pain Skin: No Rash Neurological: No Dizziness, No Focal Weakness, No Sensory Changes Psychological: No Symptoms Endocrine: No Symptoms All Other Systems: Reviewed and Negative - Past Medical History Pertinent Past Medical History: Yes Neurological History: Migraines ENT History: No Pertinent History Cardiac History: No Pertinent History Respiratory History: No Pertinent History Endocrine Medical History: No Pertinent History Musculoskeletal History: No Pertinent History GI Medical History: No Pertinent History History: No Pertinent History Psycho-Social History: Depression Female Reproductive Disorders: No Pertinent History - Past Surgical History Past Surgical History: Yes Gastrointestinal: Cholecystectomy - Social History Smoking Status: Never smoker Exposure to second hand smoke: No Drug Use: none Patient Lives Alone: No - Female History Hx Now: No - Nursing Vital Signs Nursing Vital Signs: Initial Vital Signs Temperature 98.4 F 05/10/20 00:44 Pulse Rate 80 05/10/20 00:44 Respiratory Rate 18 05/10/20 00:44 Blood Pressure 142/97 05/10/20 00:44 O2 Sat by Pulse Oximetry 98 05/10/20 00:44 Pain Scale Pain Intensity 0 - Physical Exam General Appearance: no apparent distress, alert Eye Exam: PERRL/EOMI, eyes nml inspection Ears, Nose, Throat Exam: normal ENT inspection, moist mucous membranes Neck Exam: normal inspection, non-tender, supple, full range of motion Respiratory Exam: normal breath sounds, lungs clear, No respiratory distress Cardiovascular Exam: regular rate/rhythm, normal heart sounds Gastrointestinal/Abdomen Exam: soft, No tenderness, No mass Pelvic Exam: not done Back Exam: normal inspection, No CVA tenderness, No vertebral tenderness Extremity Exam: normal inspection, normal range of motion Neurologic Exam: alert, oriented x 3, cooperative, normal mood/affect, sensation nml, No motor deficits Skin Exam: normal color, warm, dry SpO2 Interpretation: normal - Course Nursing assessment & vital signs reviewed: Yes EKG Interpreted by Me: Sinus Rhythm, NORMAL AXIS, NORMAL INTERVALS, NORMAL QRS - Radiology Exams Chest X-ray Interpretation: Interpreted by me, Negative Ordered Tests: Active Orders 24 hr Category Date Time 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 Care 05/10/20 01:05 Active EKG-ER Only STAT Care 05/10/20 00:47 Active IV Insertion STAT Care 05/10/20 01:05 Active Oxygen-ED Only Nasal Cannula 2 lpm Care 05/10/20 01:05 Active CHEST 2 VIEWS (PA AND LAT) Stat Exams 05/10/20 01:24 Taken CBC W DIFF Stat Lab 05/10/20 01:11 Completed CMP Stat Lab 05/10/20 01:11 Completed D-DIMER QUANTITATIVE Stat Lab 05/10/20 01:11 Completed NT PRO BNP Stat Lab 05/10/20 01:11 Completed PROTIME WITH INR Stat Lab 05/10/20 01:11 Completed PTT Stat Lab 05/10/20 01:11 Completed TROPONIN Q3H Lab 05/10/20 01:11 Completed TROPONIN Q3H Lab 05/10/20 04:10 Completed TROPONIN Q3H Lab 05/10/20 07:15 Ordered TROPONIN Q3H Lab 05/10/20 10:15 Ordered TROPONIN Q3H Lab 05/10/20 13:15 Ordered Medication Summary Discontinued Medications Generic Name Dose Route Start Last Admin Trade Name Davidsonq PRN Reason Stop Dose Admin Aspirin 324 mg 05/10/20 01:05 05/10/20 01:11 Baby Aspirin 81 Mg Chew PO 05/10/20 01:06 324 mg STAT ONE Administration Aspirin Confirm 05/10/20 01:10 Baby Aspirin 81 Mg Chew Administered 05/10/20 01:11 Dose 324 mg .ROUTE .STK-MED ONE Ketorolac Tromethamine 30 mg 05/10/20 01:43 05/10/20 01:53 Toradol 30 Mg Injection IV 05/10/20 01:44 30 mg STAT ONE Administration Ketorolac Tromethamine Confirm 05/10/20 01:49 Toradol 30 Mg Injection Administered 05/10/20 01:50 Dose 30 mg .ROUTE .STK-MED ONE Ketorolac Tromethamine Confirm 05/10/20 01:51 Toradol 30 Mg Injection Administered 05/10/20 01:52 Dose 30 mg .ROUTE .STK-MED ONE Nitroglycerin 0.4 mg 05/10/20 01:05 05/10/20 01:11 Nitrostat 0.4 Mg (Ed) SL 05/10/20 01:06 0.4 mg STAT ONE Administration Nitroglycerin Confirm 05/10/20 01:10 Nitrostat 0.4 Mg (Ed) Administered 05/10/20 01:11 Dose 0.4 mg SL .STK-MED ONE Lab/Rad Data: Laboratory Result Diagrams 05/10/20 01:11 05/10/20 01:11 Laboratory Results 05/10/20 05/10/20 05/10/20 Range/Units 04:10 01:11 01:11 WBC (4.0-10.5) K/mm3 RBC (4.1-5.4) M/mm3 Hgb (12.0-16.0) gm/dl Hct (35-47) % MCV (78-100) fl MCH (26-32) pg MCHC (32-36) g/dl RDW (11.5-14.0) % Plt Count (150-450) K/mm3 MPV (7.5-11.0) fl Gran % (36.0-66.0) % Eos # (Auto) (0-0.5) Absolute Lymphs (auto) (1.0-4.6) Absolute Monos (auto) (0.0-1.3) Lymphocytes % (24.0-44.0) % Monocytes % (0.0-12.0) % Eosinophils % (0.00-5.0) % Basophils % (0.0-0.4) % Absolute Granulocytes (1.4-6.9) Basophils # (0-0.4) PT 11.4 (9.95-12.35) SECONDS INR 1.01 (0.8-3.0) APTT 21.2 L (25.3-37.0) SECONDS D-Dimer 251 (215-500) ng/mL Sodium (137-145) mmol/L Potassium (3.5-5.1) mmol/L Chloride (98-107) mmol/L Carbon Dioxide (22-30) mmol/L Anion Gap (5-15) MEQ/L BUN (7-17) mg/dL Creatinine (0.52-1.04) mg/dL Estimated GFR ML/MIN Glucose (74-106) mg/dL Calcium (8.4-10.2) mg/dL Total Bilirubin (0.2-1.3) mg/dL AST (14-36) U/L ALT (0-35) U/L Alkaline Phosphatase (38-126) U/L Troponin I < 0.012 < 0.012 (0.000-0.034) ng/mL NT-Pro-B Natriuret Pep (0-450) pg/mL Serum Total Protein (6.3-8.2) g/dL Albumin (3.5-5.0) g/dL 05/10/20 05/10/20 Range/Units 01:11 01:11 WBC 10.9 H (4.0-10.5) K/mm3 RBC 4.62 (4.1-5.4) M/mm3 Hgb 12.5 (12.0-16.0) gm/dl Hct 39.3 (35-47) % MCV 85.1 (78-100) fl MCH 27.1 (26-32) pg MCHC 31.8 L (32-36) g/dl RDW 14.4 H (11.5-14.0) % Plt Count 296 (150-450) K/mm3 MPV 11.2 H (7.5-11.0) fl Gran % 58.7 (36.0-66.0) % Eos # (Auto) 0.33 (0-0.5) Absolute Lymphs (auto) 3.28 (1.0-4.6) Absolute Monos (auto) 0.85 (0.0-1.3) Lymphocytes % 30.0 (24.0-44.0) % Monocytes % 7.8 (0.0-12.0) % Eosinophils % 3.0 (0.00-5.0) % Basophils % 0.5 (0.0-0.4) % Absolute Granulocytes 6.42 (1.4-6.9) Basophils # 0.05 (0-0.4) PT (9.95-12.35) SECONDS INR (0.8-3.0) APTT (25.3-37.0) SECONDS D-Dimer (215-500) ng/mL Sodium 137 (137-145) mmol/L Potassium 3.8 (3.5-5.1) mmol/L Chloride 102 (98-107) mmol/L Carbon Dioxide 27 (22-30) mmol/L Anion Gap 12.2 (5-15) MEQ/L BUN 13 (7-17) mg/dL Creatinine 0.73 (0.52-1.04) mg/dL Estimated GFR > 60.0 ML/MIN Glucose 89 (74-106) mg/dL Calcium 9.5 (8.4-10.2) mg/dL Total Bilirubin 0.30 (0.2-1.3) mg/dL AST 30 (14-36) U/L ALT 24 (0-35) U/L Alkaline Phosphatase 83 (38-126) U/L Troponin I (0.000-0.034) ng/mL NT-Pro-B Natriuret Pep 53.2 (0-450) pg/mL Serum Total Protein 7.6 (6.3-8.2) g/dL Albumin 4.4 (3.5-5.0) g/dL - Progress Progress: improved Air Movement: good Progress Note: 05/10/20 05:00 Cardiac work-up. Will include D-dimer as well. Cardiac work-up negative. D-dimer negative. Troponin negative x2. EKG negative x2. Given patient's back pain and chest pain, thoracic aortic aneurysm was within the differential. Chest x-ray was completely normal with no widened mediastinum. Overall after exam, there is it is more muscular. Patient does not have risk factors for aneurysm or even cardiac disease. Heart score is probably 0-3. We will provide some muscle relaxers for comfort. Patient states pain completely resolved after Toradol the. Will DC home. Blood Culture(s) Obtained: No Antibiotics given: No Counseled pt/family regarding: lab results, diagnosis, need for follow-up, rad results - Departure Departure Disposition: Home Clinical Impression: Muscle spasm of back, Chest wall pain Condition: Stable Critical Care Time: No Referrals: JENNI KRAMER [Primary Care Provider] - Instructions: Chest Pain (DC) Additional Instructions: Monitor symptoms closely. Use Advil or ibuprofen for pain. May use muscle relaxer if worse. Drink plenty of water. Monitor your blood pressure. Follow- up with your PCP in 2 to 3 days for recheck. Return to ER if worse. Prescriptions: Cyclobenzaprine HCl [Flexeril] 10 mg PO TID PRN #12 tablet PRN Reason: Muscle Spasms
[2020-05-10 01:15] LABS: Absolute Neutrophil Ct (ANC) 6.42 (1.4-6.9); BASOPHIL % 0.5 % (0.0-0.4); Basophil (Absolute #) 0.05 (0-0.4); Eosinophil (Absolute #) 0.33 (0-0.5); Hematocrit 39.3 % (35-47); Hemoglobin 12.5 gm/dl (12.0-16.0); Lymphocyte (Absolute #) 3.28 (1.0-4.6); Mean Cell Volume 85.1 fl (78-100); Mean Corpuscular Hemoglobin 27.1 pg (26-32); Mean Corpuscular Hgb Concent. 31.8 g/dl (32-36); Mean Platelet Volume 11.2 fl (7.5-11.0); Monocyte (Absolute #) 0.85 (0.0-1.3); Monocytes % 7.8 % (0.0-12.0); Neutrophil % 58.7 % (36.0-66.0); Platelet Count 296 K/mm3 (150-450); Red Blood Count 4.62 M/mm3 (4.1-5.4); Red Cell Distribution Width 14.4 % (11.5-14.0); White Blood Count 10.9 K/mm3 (4.0-10.5)
[2020-05-10 01:23] LABS: INR 1.01 (0.8-3.0); PROTIME 11.4 SECONDS (9.95-12.35)
[2020-05-10 01:25] LABS: PTT 21.2 SECONDS (25.3-37.0)
[2020-05-10 01:37] LABS: ALBUMIN 4.4 g/dL (3.5-5.0); ALKALINE PHOSPHATASE 83 U/L (38-126); ANION GAP 12.2 MEQ/L (5-15); BLOOD UREA NITROGEN 13 mg/dL (7-17); CHLORIDE 102 mmol/L (98-107); Calcium 9.5 mg/dL (8.4-10.2); Carbon Dioxide 27 mmol/L (22-30); Creatinine 1 0.73 mg/dL (0.52-1.04); EST GLOMERULAR FILTRATION RATE > 60.0 ML/MIN; Glucose 89 mg/dL (74-106); NT PRO BNP 53.2 pg/mL (0-450); Potassium 3.8 mmol/L (3.5-5.1); SGOT/AST 30 U/L (14-36); SGPT/ALT 24 U/L (0-35); SODIUM 137 mmol/L (137-145); Total Protein 7.6 g/dL (6.3-8.2)
[2020-05-10] MEDS ORDERED: TORAdol 30 mg Injection IV ONE (01:43)
[2020-05-10] MEDS ORDERED: TORAdol 30 mg Injection ONE ×2 (01:49→01:51)
[2020-05-10 04:03] VITALS: O2SAT 98
[2020-05-10 05:10] VITALS: BP 106/81; PULSE 67
--- NOTE | 2020-05-10 07:19 | XRAY ---
Indication: Chest and back pain. Short of breath. Comparison: None PA/lateral chest demonstrates normal heart, lungs, and bony thorax with incidental right axilla jennifer dissection.
== END 2020-05-10 05:20 | disposition home or self-care (01) ==
LOC: ED 00:44
DX: M62.830 Muscle spasm of back (principal); R07.89 Other chest pain
CPT/HCPCS: 36000; 36415; 71046; 80053; 83880; 84484; 85025; 85379; 85610; 85730; 93005; 93041; 96374; 99284; J1885; A9270-GY

== ENCOUNTER 2021-01-24 18:32 | Emergency (ER) | payer OTHER ==
--- NOTE | 2021-01-24 19:13 | ERPHSYRPT ---
- History of Present Illness Time Seen by Provider: 01/24/21 18:40 Source: patient Exam Limitations: no limitations Patient Subjective Stated Complaint: Abnormal labs Triage Nursing Assessment: Patient ambulated back to ED and transferred self to bed. Patient A+O X3. Patient's skin pink, warm and dry. Patient states she had labs drawn today and was called to come to ED for eval due to D Dimer of 669. Patient denies pain or SOB at this time. Physician History: 40-year-old female with history of anxiety/depression/migraine having intermittent shortness of breath was evaluated outpatient this evening, had work-up done which showed elevated D-dimer and is sent to ER for CTA. Denies any chest pain palpitations or shortness of breath at present. No fever chills or cough reported. Denies any sick contact. No history of DVT/PE. Not taking any control pills. Timing/Duration: week(s), intermittent, improved Severity: mild Modifying Factors: Improves With: rest. Worsens With: movement Associated Symptoms: shortness of breath, No chest pain Allergies/Adverse Reactions: No Known Drug Allergies Allergy (Verified 05/10/20 00:47) Home Medications: Fluoxetine HCl [Prozac] 40 mg PO DAILY 03/08/18 [History] Topiramate 1 tab PO DAILY 01/24/21 [History] Hx Tetanus, Diphtheria Vaccination/Date Given: Yes Hx Influenza Vaccination/Date Given: No Hx Pneumococcal Vaccination/Date Given: No Immunizations Up to Date: Yes Travel Risk - International Travel Have you traveled outside of the country in past 3 weeks: No - Coronavirus Screening Are you exhibiting any of the following symptoms?: No Close contact with a COVID-19 positive Pt in past 14-21 Days: No - Vaccine Status Have you recieved a Covid-19 vaccination: Yes Change Booth Attendant: Pfizer - Vaccination Dates Date of 2cond Vaccination (if applicable): January 2021 - Review of Systems Constitutional: No Symptoms Eyes: No Symptoms Ears, Nose, & Throat: No Symptoms Respiratory: Dyspnea Cardiac: No Symptoms Abdominal/Gastrointestinal: No Symptoms Genitourinary Symptoms: No Symptoms Musculoskeletal: No Symptoms Skin: No Symptoms Neurological: No Symptoms Psychological: Anxiety Endocrine: No Symptoms Hematologic/Lymphatic: No Symptoms Immunological/Allergic: No Symptoms - Past Medical History Pertinent Past Medical History: Yes Neurological History: Migraines ENT History: No Pertinent History Cardiac History: No Pertinent History Respiratory History: No Pertinent History Endocrine Medical History: No Pertinent History Musculoskeletal History: No Pertinent History GI Medical History: No Pertinent History History: No Pertinent History Psycho-Social History: Depression Female Reproductive Disorders: No Pertinent History - Past Surgical History Past Surgical History: Yes Gastrointestinal: Cholecystectomy - Social History Smoking Status: Never smoker Exposure to second hand smoke: No Drug Use: none Patient Lives Alone: No - Female History Hx Now: (UNKN) - Nursing Vital Signs Nursing Vital Signs: Initial Vital Signs Temperature 97.8 F 01/24/21 18:40 Blood Pressure 160/102 01/24/21 18:40 Pain Scale Pain Intensity 0 - Physical Exam General Appearance: no apparent distress, alert, anxiety Eye Exam: PERRL/EOMI Ears, Nose, Throat Exam: normal ENT inspection Neck Exam: normal inspection, supple, full range of motion Respiratory Exam: normal breath sounds, lungs clear Cardiovascular Exam: regular rate/rhythm, normal heart sounds Gastrointestinal/Abdomen Exam: soft, normal bowel sounds, No tenderness Extremity Exam: normal inspection, normal range of motion, pelvis stable Neurologic Exam: alert, oriented x 3, cooperative, chain person II-XII nml as tested SpO2 Interpretation: normal SpO2: 96 O2 Delivery: Room Air Ordered Tests: Active Orders 24 hr Category Date Time Status Sausage Stringer STAT Care 01/24/21 18:43 Active EKG-ER Only STAT Care 01/24/21 18:42 Active IV Insertion STAT Care 01/24/21 18:42 Active CHEST WITH CONTRAST [CT] Stat Exams 01/24/21 19:01 Taken TROPONIN Q3H Lab 01/24/21 18:56 Completed TROPONIN Q3H Lab 01/24/21 21:45 Ordered TROPONIN Q3H Lab 01/25/21 00:45 Ordered TROPONIN Q3H Lab 01/25/21 03:45 Ordered Lab/Rad Data: Laboratory Results 01/24/21 Range/Units 18:56 Troponin I < 0.012 (0.000-0.034) ng/mL - Progress Progress: unchanged Progress Note: 01/24/21 20:25 Patient is not in any respiratory distress. CTA is negative for pulmonary embolism/any other cardiopulmonary findings. Patient remained asymptomatic. She is being discharged with outpatient follow-up with primary care and cardiology. Discussed signs symptoms of worsening needing return to ER which she seems understanding. Counseled pt/family regarding: lab results, diagnosis, need for follow-up, rad results - Departure Departure Disposition: Home Clinical Impression: Elevated d-dimer Dyspnea Qualifiers: Dyspnea type: other forms of dyspnea Qualified Code(s): R06.09 - Other forms of dyspnea Condition: Stable Critical Care Time: No Referrals: DOCTOR,NO FAMILY [Primary Care Provider] - Follow up/PCP as directed RAVEN LEE MD [ACTIVE STAFF] - Follow up/PCP as directed (2 days for reevaluation) JOAN BRUMFIELD [CONSULTING PHYSICIAN] - Follow up/PCP as directed (Call in 2 days for reevaluation.) Instructions: Shortness of Breath (Dyspnea) (DC) Additional Instructions: Follow-up with your primary care and cardiology for reevaluation. Return to ER for worsening shortness of breath or if develop chest tightness pressure/pain etc.
[2021-01-24 20:50] VITALS: BP 170/84; PULSE 74; O2SAT 98
--- NOTE | 2021-01-24 23:06 | XRAY ---
Indication: Short of breath. Elevated d-dimer. Multiple contiguous axial images obtained through the chest using 80 cc Isovue 370 contrast and PE protocol. Comparison: None There is suboptimal opacification of the pulmonary arteries limiting evaluation of the more distal lobar and segmental branches. No obvious pulmonary embolus. Heart not enlarged. Aorta is normal in course and caliber. No pathologic mediastinal/hilar lymphadenopathy. Lungs are inflated and clear. Bony thorax intact. Limited upper abdomen demonstrates cholecystectomy clips. Impression: Pulmonary embolus evaluation limited due to suboptimal contrast opacification. No obvious pulmonary embolus. No acute cardiopulmonary abnormalities. Comment: Preliminary interpretation made by [facility]. No critical discrepancy.
== END 2021-01-24 20:19 | disposition home or self-care (01) ==
LOC: ED 18:32
DX: R79.1 Abnormal coagulation profile (principal); R06.09 Other forms of dyspnea
CPT/HCPCS: 36000; 36415; 71260; 84484; 93005; 93041; 99284

== ENCOUNTER 2022-03-27 12:43 | Emergency (ER) | payer OTHER ==
[2022-03-27] MEDS ORDERED: Sodium Chloride 0.9% 1000 ML 1,000 ML IV STA (13:14)
[2022-03-27] MEDS ORDERED: Sodium Chloride 0.9% 1000 ML 1,000 ML ONE (13:21)
[2022-03-27 13:42] LABS: Absolute Neutrophil Ct (ANC) 8.57 x10^3/uL (1.4-6.9); BASOPHIL % 0.5 % (0.0-0.4); Basophil (Absolute #) 0.05 x10^3/uL (0-0.4); Eosinophil % 1.2 % (0.00-5.0); Eosinophil (Absolute #) 0.13 x10^3/uL (0-0.5); Hematocrit 40.1 % (35-47); Hemoglobin 12.6 g/dL (12.0-16.0); IMMATURE GRAN # 0.03 x10^3u/L (0.00-0.03); IMMATURE GRAN % 0.3 % (0.00-0.4); Lymphocyte (Absolute #) 1.42 x10^3/uL (1.0-4.6); Mean Cell Volume 84.2 fL (78-100); Mean Corpuscular Hemoglobin 26.5 pg (26-32); Mean Corpuscular Hgb Concent. 31.4 g/dL (32-36); Mean Platelet Volume 11.9 fL (7.5-11.0); Monocyte (Absolute #) 0.71 x10^3/uL (0.0-1.3); Monocytes % 6.5 % (0.0-12.0); Neutrophil % 78.5 % (36.0-66.0); Platelet Count 322 x10^3/uL (150-450); Red Blood Count 4.76 x10^6/uL (4.1-5.4); Red Cell Distribution Width 14.9 % (11.5-14.0); White Blood Count 10.9 x10^3/uL (4.0-10.5)
[2022-03-27 13:42] LABS: Appearance Turbid (Clear); Bacteria Many /HPF (None Seen); Bilirubin Negative (Negative); Blood Large (Negative); Epithelial Cells None Seen /HPF (None Seen); Glucose, Urine Negative (Negative); Ketones 15 (Negative); Leukocyte Esterase Large (Negative); Nitrite Positive (Negative); Ph 6.5 (4.6-8.0); Protein,Urine Dip 300 (Negative); RBC >100 /HPF (0-5); WBC >100 /HPF (0-5)
[2022-03-27 13:43] LABS: ADD URINE CULTURE? YES (NO)
[2022-03-27 13:55] LABS: ALBUMIN 4.8 g/dL (3.5-5.0); ALKALINE PHOSPHATASE 83 U/L (38-126); ANION GAP 14.5 MEQ/L (5-15); BLOOD UREA NITROGEN 8 mg/dL (7-17); CHLORIDE 102 mmol/L (98-107); Calcium 9.3 mg/dL (8.4-10.2); Carbon Dioxide 26 mmol/L (22-30); Creatinine 1 0.76 mg/dL (0.52-1.04); EST GLOMERULAR FILTRATION RATE > 60.0 ML/MIN; Glucose 97 mg/dL (74-106); Potassium 3.8 mmol/L (3.5-5.1); SGOT/AST 25 U/L (14-36); SGPT/ALT 18 U/L (0-35); SODIUM 139 mmol/L (137-145)
[2022-03-27] MEDS ORDERED: ROCEPHIN 1 Gm-D5w 50 ml Bag** 1 G/50 ML IVPB IV STA (14:28)
[2022-03-27] MEDS ORDERED: ROCEPHIN 1 Gm-D5w 50 ml Bag** 1 G/50 ML IVPB IV ONE (14:29)
--- NOTE | 2022-03-27 15:13 | ERPHSYRPT ---
- History of Present Illness Time Seen by Provider: 03/27/22 13:25 Historian: patient Exam Limitations: no limitations Patient Subjective Stated Complaint: Pt states "I started to have pain in my lower back that came accross into my belly last night and now the pain is kil ling me and I have blood in my urine." Triage Nursing Assessment: Pt presented alert and oriented X 3, skin pwd.Pt ambualtes with an upright steady gait, able to speak in clear full sentences. PT will occasionally grunt and moan. Physician History: Patient is a 41-year-old female who presents with "kidney pain". 3 days ago she started with suprapubic pain and increased urinary frequency the pain then moved to the back and the right flank. She has passed out and she has had vomiting on one occasion. She has no history of kidney stones and no history of recurrent urinary tract infections. Timing/Duration: day(s) (3) Activities at Onset: none Quality: cramping, stabbing, throbbing Abdominal Pain Onset Location: RLQ, flank (Right flank) Pain Radiation: groin Severity of Pain-Max: severe Severity of Pain-Current: moderate Modifying Factors: Improves With: urinating Associated Symptoms: nausea, syncope, vomiting Allergies/Adverse Reactions: No Known Drug Allergies Allergy (Verified 05/10/20 00:47) Home Medications: Topiramate 1 tab PO DAILY 01/24/21 [History] Valacyclovir HCl [valACYclovir] 1,000 mg PO DAILY 03/27/22 [History] Hx Tetanus, Diphtheria Vaccination/Date Given: Yes Hx Influenza Vaccination/Date Given: No Hx Pneumococcal Vaccination/Date Given: No Immunizations Up to Date: Yes Travel Risk - International Travel Have you traveled outside of the country in past 3 weeks: No - Coronavirus Screening Are you exhibiting any of the following symptoms?: No Close contact with a COVID-19 positive Pt in past 14-21 Days: No - Vaccine Status Have you recieved a Covid-19 vaccination: Yes Bunch Trimmer Mold: Netli - Vaccination Dates Date of 2cond Vaccination (if applicable): January 2021 - Review of Systems Constitutional: No Fever, No Chills Eyes: No Symptoms Ears, Nose, & Throat: No Symptoms Respiratory: No Cough, No Dyspnea Cardiac: No Chest Pain, No Edema, No Syncope Abdominal/Gastrointestinal: Abdominal Pain, No Nausea, No Vomiting, No Diarrhea Genitourinary Symptoms: Frequency, Hematuria, Urgency, No Dysuria Musculoskeletal: No Back Pain, No Neck Pain Skin: No Rash Neurological: No Dizziness, No Focal Weakness, No Sensory Changes Psychological: No Symptoms Endocrine: No Symptoms All Other Systems: Reviewed and Negative - Past Medical History Pertinent Past Medical History: Yes Neurological History: Migraines ENT History: No Pertinent History Cardiac History: No Pertinent History Respiratory History: No Pertinent History Endocrine Medical History: No Pertinent History Musculoskeletal History: No Pertinent History GI Medical History: No Pertinent History History: No Pertinent History Psycho-Social History: Depression Female Reproductive Disorders: No Pertinent History - Past Surgical History Past Surgical History: Yes Gastrointestinal: Cholecystectomy - Social History Smoking Status: Never smoker Exposure to second hand smoke: No Drug Use: none Patient Lives Alone: No - Female History Hx Last Menstrual Period: 03/22/2022 Hx Now: No - Nursing Vital Signs Nursing Vital Signs: Initial Vital Signs Temperature 98.6 F 03/27/22 13:13 Pulse Rate 96 H 03/27/22 13:13 Respiratory Rate 20 03/27/22 13:13 Blood Pressure 144/84 03/27/22 13:13 O2 Sat by Pulse Oximetry 100 03/27/22 13:13 Pain Scale Pain Intensity 5 - Physical Exam General Appearance: mild distress, alert Eye Exam: PERRL/EOMI, eyes nml inspection Ears, Nose, Throat Exam: normal ENT inspection, pharynx normal, moist mucous membranes Neck Exam: normal inspection, non-tender, supple, full range of motion Respiratory Exam: normal breath sounds, lungs clear, No respiratory distress Cardiovascular Exam: regular rate/rhythm, normal heart sounds Gastrointestinal/Abdomen Exam: soft, tenderness (Tenderness over the suprapubic area), No mass Back Exam: normal inspection, normal range of motion, CVA tenderness (Right CVA tenderness), No vertebral tenderness Extremity Exam: normal inspection, normal range of motion, pelvis stable Neurologic Exam: alert, oriented x 3, cooperative, normal mood/affect, nml cerebellar function, sensation nml, No motor deficits Skin Exam: normal color, warm, dry SpO2 Interpretation: normal SpO2: 98 O2 Delivery: Room Air - Course Nursing assessment & vital signs reviewed: Yes - CT Exams Abdomen/Pelvis CT Interpretation: Tele-radiologist Report, Other (CT shows mild to moderate right hydronephrosis and hydroureter with a possible past calculus.) Ordered Tests: Active Orders 24 hr Category Date Time Status ABDOMEN AND PELVIS W/0 CONTRAS [CT] Stat Exams 03/27/22 13:14 Taken CBC W DIFF Stat Lab 03/27/22 13:25 Completed CMP Stat Lab 03/27/22 13:25 Completed CULTURE,URINE Stat Lab 03/27/22 13:01 Received UA W/RFX UR CULTURE Stat Lab 03/27/22 13:01 Completed Medication Summary Discontinued Medications Generic Name Dose Route Start Last Admin Trade Name Freq PRN Reason Stop Dose Admin Sodium Chloride 1,000 mls @ 999 mls/hr 03/27/22 13:14 03/27/22 14:29 Sodium Chloride 0.9% 1000 Ml IV 03/27/22 14:14 Infused .Q1H1M STA Infusion Sodium Chloride Confirm 03/27/22 13:21 Sodium Chloride 0.9% 1000 Ml Administered 03/27/22 13:22 Dose 1,000 mls @ ud .ROUTE .STK-MED ONE Ceftriaxone Sodium/Dextrose 1 g in 50 mls @ 100 mls/hr 03/27/22 14:28 03/27 14:32 Rocephin 1 Gm-D5w 50 Ml Bag IV 03/27/22 14:57 100 ml/hr STAT STA 100 mls/hr Administration Ceftriaxone Sodium/Dextrose Confirm 03/27/22 14:29 Rocephin 1 Gm-D5w 50 Ml Bag Administered 03/27/22 14:30 Dose 1 g in 50 mls @ ud IV .STK-MED ONE Lab/Rad Data: Laboratory Result Diagrams 03/27/22 13:25 03/27/22 13:25 Laboratory Results 03/27/22 03/27/22 03/27/22 Range/Units 13:25 13:25 13:01 WBC 10.9 H (4.0-10.5) x10^3/uL RBC 4.76 (4.1-5.4) x10^6/uL Hgb 12.6 (12.0-16.0) g/dL Hct 40.1 (35-47) % MCV 84.2 (78-100) fL MCH 26.5 (26-32) pg MCHC 31.4 L (32-36) g/dL RDW 14.9 H (11.5-14.0) % Plt Count 322 (150-450) x10^3/uL MPV 11.9 H (7.5-11.0) fL Gran % 78.5 H (36.0-66.0) % Immature Gran % (Auto) 0.3 (0.00-0.4) % Nucleat RBC Rel Count 0.0 (0.00-0.1) % Eos # (Auto) 0.13 (0-0.5) x10^3/uL Immature Gran # (Auto) 0.03 (0.00-0.03) x10^3u/L Absolute Lymphs (auto) 1.42 (1.0-4.6) x10^3/uL Absolute Monos (auto) 0.71 (0.0-1.3) x10^3/uL Absolute Nucleated RBC 0.00 (0.00-0.01) x10^3u/L Lymphocytes % 13.0 L (24.0-44.0) % Monocytes % 6.5 (0.0-12.0) % Eosinophils % 1.2 (0.00-5.0) % Basophils % 0.5 (0.0-0.4) % Absolute Granulocytes 8.57 H (1.4-6.9) x10^3/uL Basophils # 0.05 (0-0.4) x10^3/uL Sodium 139 (137-145) mmol/L Potassium 3.8 (3.5-5.1) mmol/L Chloride 102 (98-107) mmol/L Carbon Dioxide 26 (22-30) mmol/L Anion Gap 14.5 (5-15) MEQ/L BUN 8 (7-17) mg/dL Creatinine 0.76 (0.52-1.04) mg/dL Estimated GFR > 60.0 ML/MIN Glucose 97 (74-106) mg/dL Calcium 9.3 (8.4-10.2) mg/dL Total Bilirubin 0.50 (0.2-1.3) mg/dL AST 25 (14-36) U/L ALT 18 (0-35) U/L Alkaline Phosphatase 83 (38-126) U/L Serum Total Protein 8.0 (6.3-8.2) g/dL Albumin 4.8 (3.5-5.0) g/dL Urine Color [place] A (Yellow) Urine Appearance Turbid A (Clear) Urine pH 6.5 (4.6-8.0) Ur Specific [place] 1.020 (1.005-1.030) Urine Protein 300 A (Negative) Urine Glucose (UA) Negative (Negative) mg/dL Urine Ketones 15 A (Negative) Urine Blood Large A (Negative) Urine Nitrite Positive A (Negative) Urine Bilirubin Negative (Negative) Urine Urobilinogen 1.0 A (0.2) mg/dL Ur Leukocyte Esterase Large A (Negative) U Hyaline Cast (Auto) 6-10 A (0-2) /LPF Urine Microscopic RBC >100 A (0-5) /HPF Urine Microscopic WBC >100 A (0-5) /HPF Ur Epithelial Cells None Seen (None Seen) /HPF Urine Bacteria Many A (None Seen) /HPF Urine Culture Reflexed YES (NO) - Progress Progress: improved - Departure Departure Disposition: Home Clinical Impression: Renal colic, Urinary tract infection Condition: Stable Critical Care Time: No Referrals: JENNI NAJERA [Primary Care Provider] - Follow up/PCP as directed Instructions: Kidney Stones (DC), Flank Pain, Urinary Tract Infection, Adult (DC) Prescriptions: Hydrocodone/Acetaminophen [Hydrocodone-Acetamin 5-325 mg] 1 tab PO Q6HPRN PRN 3 Days #12 tablet MDD 4 PRN Reason: Pain Cephalexin Mh 500 mg [Keflex 500 mg] 500 mg PO QID #40 cap
[2022-03-27 15:14] VITALS: BP 153/95; PULSE 76
[2022-03-27 15:19] VITALS: O2SAT 98
--- NOTE | 2022-03-27 20:19 | XRAY ---
Indication: Right flank pain and hematuria. Multiple contiguous axial images obtained through the abdomen and pelvis without contrast using renal stone protocol. Comparison: March 08, 2018 Lung bases clear. Heart not enlarged. No renal calculus in either system or bladder. Right kidney is now mildly hydronephrotic along with minimal right hydroureter suggesting recent passage of calculus. Urinary bladder demonstrates mild circumferential wall thickening either cystitis versus incomplete distention. Noncontrasted stomach and bowel loops nonobstructed. Again cholecystectomy. No free fluid/air. Remaining liver, pancreas, spleen, adrenal glands, kidneys, ureters, bladder, uterus, and aorta are unremarkable for noncontrast exam. Osseous structures intact. Impression: No renal calculus. However new mild right hydronephrosis and minimal right hydroureter suggests recent passage of calculus. Mild urinary bladder wall thickening either cystitis versus incomplete distention. Comment: Preliminary interpretation made by [facility]. No critical discrepancy.
== END 2022-03-27 15:49 | disposition home or self-care (01) ==
LOC: ED 12:43
DX: N23 Unspecified renal colic (principal); N39.0 Urinary tract infection, site not specified; M54.50 Low back pain, unspecified; R55 Syncope and collapse; R11.10 Vomiting, unspecified; Z79.899 Other long term (current) drug therapy; Z79.891 Long term (current) use of opiate analgesic
CPT/HCPCS: 36000; 36415; 74176; 80053; 81001; 85025; 87077; 87086; 87186; 96360; 96365; 99284; J0696

== ENCOUNTER 2022-12-09 10:42 | Emergency (ER) | payer OTHER ==
[2022-12-09] MEDS ORDERED: BENADRYL 50 MG/ML IV ONE (11:32)
[2022-12-09] MEDS ORDERED: Reglan 10 MG/2 ML IV ONE (11:32)
[2022-12-09 11:39] LABS: Absolute Neutrophil Ct (ANC) 2.87 x10^3/uL (1.4-6.9); Basophil (Absolute #) 0.05 x10^3/uL (0-0.4); Eosinophil % 5.3 % (0.00-5.0); Eosinophil (Absolute #) 0.27 x10^3/uL (0-0.5); Hematocrit 37.8 % (35-47); Hemoglobin 11.6 g/dL (12.0-16.0); IMMATURE GRAN # 0.01 x10^3u/L (0.00-0.03); IMMATURE GRAN % 0.2 % (0.00-0.4); Lymphocyte (Absolute #) 1.53 x10^3/uL (1.0-4.6); Lymphocytes % 29.8 % (24.0-44.0); Mean Cell Volume 80.9 fL (78-100); Mean Corpuscular Hemoglobin 24.8 pg (26-32); Mean Corpuscular Hgb Concent. 30.7 g/dL (32-36); Monocytes % 7.8 % (0.0-12.0); Neutrophil % 55.9 % (36.0-66.0); Platelet Count 339 x10^3/uL (150-450); Red Blood Count 4.67 x10^6/uL (4.1-5.4); Red Cell Distribution Width 16.5 % (11.5-14.0); White Blood Count 5.1 x10^3/uL (4.0-10.5)
[2022-12-09] MEDS ORDERED: BENADRYL 50 MG/ML ONE (11:39)
[2022-12-09] MEDS ORDERED: Reglan 10 MG/2 ML ONE (11:39)
[2022-12-09] MEDS ORDERED: Sodium Chloride 0.9% 1000 ML 1,000 ML ONE (11:39)
[2022-12-09] MEDS ORDERED: Sodium Chloride 0.9% 1000 ML 1,000 ML IV SCH (11:45)
[2022-12-09 11:47] VITALS: TEMP 98.1
[2022-12-09 11:48] LABS: Appearance Clear (Clear); Bacteria None Seen /HPF (None Seen); Bilirubin Negative (Negative); Blood Trace (Negative); Epithelial Cells None Seen /HPF (None Seen); Glucose, Urine Negative (Negative); Hyaline Casts NONE SEEN /LPF (0-2); Ketones Negative (Negative); Leukocyte Esterase Negative (Negative); Nitrite Negative (Negative); Protein,Urine Dip Negative (Negative); Specific Gravity 1.015 (1.005-1.030); Urobilinogen 0.2 mg/dL (0.2); WBC 0-2 /HPF (0-5)
[2022-12-09 11:49] LABS: ADD URINE CULTURE? NO (NO)
--- NOTE | 2022-12-09 11:54 | XRAY ---
Indication: Hypertension. Headache. Comparison: May 10, 2020. Portable apical lordotic chest again demonstrates normal heart, lungs, and bony thorax with incidental right axillary surgical clips.
[2022-12-09 12:04] LABS: ALBUMIN 4.5 g/dL (3.5-5.0); ALKALINE PHOSPHATASE 74 U/L (38-126); ANION GAP 16.6 MEQ/L (5-15); BLOOD UREA NITROGEN 14 mg/dL (7-17); CHLORIDE 106 mmol/L (98-107); Calcium 8.7 mg/dL (8.4-10.2); Carbon Dioxide 18 mmol/L (22-30); Creatinine 1 0.67 mg/dL (0.52-1.04); EST GLOMERULAR FILTRATION RATE > 60.0 ML/MIN; Glucose 95 mg/dL (74-106); HCG, Quantitative (Inhouse) < 2.39 mIU/ml; LIPASE 42 U/L (23-300); Potassium 3.6 mmol/L (3.5-5.1); SGOT/AST 43 U/L (14-36); SGPT/ALT 39 U/L (0-35); SODIUM 137 mmol/L (137-145); Total Protein 7.7 g/dL (6.3-8.2)
--- NOTE | 2022-12-09 12:35 | XRAY ---
Indication: Headache. Multiple contiguous axial images obtained through the head without contrast. Comparison: None Normal appearing brain parenchyma, ventricles, and bony calvarium. Mild mucosal thickening both ethmoid and lesser degree both maxillary/left sphenoid sinuses. Remaining visualized paranasal sinuses and mastoid air cells are clear. Impression: Paranasal sinus disease. Remaining CT head without contrast exam is normal.
[2022-12-09] MEDS ORDERED: TORAdol 30 mg Injection IV ONE (12:43)
[2022-12-09] MEDS ORDERED: TORAdol 30 mg Injection ONE (12:45)
--- NOTE | 2022-12-09 13:42 | ERPHSYRPT ---
- History of Present Illness Time Seen by Provider: 12/09/22 10:55 Source: patient Exam Limitations: no limitations Patient Subjective Stated Complaint: HTN Triage Nursing Assessment: Patient ambulated back to ED and transferred self to bed. Patient A+O X3. Patient's skin flushed, warm and dry. Patient complains of HTN as high as 181/109, headache, nausea and dizziness since Tuesday. Patient was seen Tuesday by PCP for a rash to left side of neck and dx with shingles and given Valcycovir. Patient states ever since she has been feeling bad. Patient complains of headache 07/31. Physician History: 42 years old female with history of hypertension, migraines presented in the ER with chief complaint of headache, dizziness, elevated blood pressure and feeling of fatigue and tiredness. Patient reports having some kind of bite on the left side of the neck with enlarged nodes for which she was evaluated at outpatient, was diagnosed with shingles and on Valtrex. She denies any fever or chills. No cough or difficulty breathing reported. Denies any focal numbness tingling or weakness. Patient reports headache is mostly frontal, 8/10 intensity and is not like her routine migraines. Patient checked her blood pressure and it was in 180s, usually it is in 130s. Allergies/Adverse Reactions: No Known Drug Allergies Allergy (Verified 12/09/22 10:47) Home Medications: Topiramate 1 tab PO DAILY 01/24/21 [History] Valacyclovir HCl [valACYclovir] 1,000 mg PO DAILY 03/27/22 [History] Hx Tetanus, Diphtheria Vaccination/Date Given: Yes Hx Influenza Vaccination/Date Given: No Hx Pneumococcal Vaccination/Date Given: No Immunizations Up to Date: Yes Travel Risk - Coronavirus Screening Are you exhibiting any of the following symptoms?: No Close contact with a COVID-19 positive Pt in past 14-21 Days: No - Vaccine Status Have you recieved a Covid-19 vaccination: Yes [employer]: [employer] - Vaccination Dates Date of 2cond Vaccination (if applicable): January 2021 - Review of Systems Constitutional: No Symptoms Eyes: Photophobia Ears, Nose, & Throat: Sinus Drainage Respiratory: No Symptoms Cardiac: No Symptoms Abdominal/Gastrointestinal: No Symptoms Genitourinary Symptoms: No Symptoms Musculoskeletal: No Symptoms Skin: No Symptoms Neurological: Dizziness, Headache Psychological: No Symptoms Endocrine: No Symptoms Hematologic/Lymphatic: No Symptoms Immunological/Allergic: No Symptoms - Past Medical History Pertinent Past Medical History: Yes Neurological History: Migraines ENT History: No Pertinent History Cardiac History: No Pertinent History Respiratory History: No Pertinent History Endocrine Medical History: No Pertinent History Musculoskeletal History: No Pertinent History GI Medical History: No Pertinent History History: No Pertinent History Psycho-Social History: Depression Female Reproductive Disorders: No Pertinent History - Past Surgical History Past Surgical History: Yes Neuro Surgical History: No Pertinent History Cardiac: No Pertinent History Respiratory: No Pertinent History Gastrointestinal: Cholecystectomy Genitourinary: No Pertinent History Musculoskeletal: No Pertinent History Female Surgical History: No Pertinent History - Social History Smoking Status: Never smoker Exposure to second hand smoke: No Drug Use: none Patient Lives Alone: No - Female History Hx Last Menstrual Period: last week Hx Now: (UNKN) - Nursing Vital Signs Nursing Vital Signs: Initial Vital Signs Temperature 98.1 F 12/09/22 11:00 Pulse Rate 74 12/09/22 11:00 Respiratory Rate 18 12/09/22 11:00 Blood Pressure 180/106 12/09/22 11:00 O2 Sat by Pulse Oximetry 100 12/09/22 11:00 Pain Scale Pain Intensity 3 - Physical Exam General Appearance: no apparent distress, alert Eye Exam: PERRL/EOMI, eyes nml inspection Ears, Nose, Throat Exam: normal ENT inspection, moist mucous membranes Neck Exam: normal inspection, supple, full range of motion, lymphadenopathy, other (Bite bean with erythema around the left mid sternomastoid area.) Respiratory Exam: normal breath sounds, lungs clear Cardiovascular Exam: regular rate/rhythm, normal heart sounds Gastrointestinal/Abdomen Exam: soft, normal bowel sounds, No tenderness Back Exam: normal inspection Extremity Exam: normal inspection, normal range of motion Neurologic Exam: alert, oriented x 3, cooperative Skin Exam: normal color SpO2 Interpretation: normal SpO2: 98 O2 Delivery: Room Air - Course EKG Interpreted by Me: RATE ([id number]), Sinus Rhythm, NORMAL AXIS, NORMAL INTERVALS, NORMAL QRS Ordered Tests: Active Orders 24 hr Category Date Time Status EKG-ER Only STAT Care 12/09/22 11:32 Completed IV Insertion STAT Care 12/09/22 11:32 Completed CHEST 1 VIEW (PORTABLE) Stat Exams 12/09/22 11:33 Completed HEAD WITHOUT CONTRAST [CT] Stat Exams 12/09/22 11:34 Completed CBC W DIFF Stat Lab 12/09/22 11:37 Completed CMP Stat Lab 12/09/22 11:37 Completed HCG, Quantitative (Inhouse) Stat Lab 12/09/22 11:37 Completed LIPASE Stat Lab 12/09/22 11:37 Completed Lactic Acid Stat Lab 12/09/22 11:40 Completed TROPONIN Q4H Lab 12/09/22 11:37 Completed UA W/RFX UR CULTURE Stat Lab 12/09/22 11:37 Completed Medication Summary Discontinued Medications Generic Name Dose Route Start Last Admin Trade Name Freq PRN Reason Stop Dose Admin Diphenhydramine HCl 25 mg 12/09/22 11:32 12/09/22 11:42 Diphenhydramine Hcl 50 Mg/Ml Vial IV 12/09/22 11:33 25 mg STAT ONE Administration Diphenhydramine HCl Confirm 12/09/22 11:39 Diphenhydramine Hcl 50 Mg/Ml Vial Administered 12/09/22 11:40 Dose 50 mg .ROUTE .STK-MED ONE Sodium Chloride 1,000 mls @ 125 mls/hr 12/09/22 11:45 12/09/22 11:41 Sodium Chloride 0.9% 1000 Ml IV 01/08/23 11:44 125 mls/hr .Q8H KARISSA Administration Sodium Chloride Confirm 12/09/22 11:39 Sodium Chloride 0.9% 1000 Ml Administered 12/09/22 11:40 Dose 1,000 mls @ ud .ROUTE .STK-MED ONE Ketorolac Tromethamine 30 mg 12/09/22 12:43 12/09/22 12:46 Ketorolac Tromethamine 30 Mg/Ml Inj IV 12/09/22 12:44 30 mg STAT ONE Administration Ketorolac Tromethamine Confirm 12/09/22 12:45 Ketorolac Tromethamine 30 Mg/Ml Inj Administered 12/09/22 12:46 Dose 30 mg .ROUTE .STK-MED ONE Metoclopramide HCl 10 mg 12/09/22 11:32 12/09/22 11:42 Metoclopramide Hcl 10 Mg/2 Ml Vial IV 12/09/22 11:33 10 mg STAT ONE Administration Metoclopramide HCl Confirm 12/09/22 11:39 Metoclopramide Hcl 10 Mg/2 Ml Vial Administered 12/09/22 11:40 Dose 10 mg .ROUTE .STK-MED ONE Lab/Rad Data: Laboratory Result Diagrams 12/09/22 11:37 12/09/22 11:37 Laboratory Results 12/09/22 12/09/22 12/09/22 Range/Units 11:40 11:37 11:37 WBC (4.0-10.5) x10^3/uL RBC (4.1-5.4) x10^6/uL Hgb (12.0-16.0) g/dL Hct (35-47) % MCV (78-100) fL MCH (26-32) pg MCHC (32-36) g/dL RDW (11.5-14.0) % Plt Count (150-450) x10^3/uL MPV (7.5-11.0) fL Gran % (36.0-66.0) % Immature Gran % (Auto) (0.00-0.4) % Nucleat RBC Rel Count (0.00-0.1) % Eos # (Auto) (0-0.5) x10^3/uL Immature Gran # (Auto) (0.00-0.03) x10^3u/L Absolute Lymphs (auto) (1.0-4.6) x10^3/uL Absolute Monos (auto) (0.0-1.3) x10^3/uL Absolute Nucleated RBC (0.00-0.01) x10^3u/L Lymphocytes % (24.0-44.0) % Monocytes % (0.0-12.0) % Eosinophils % (0.00-5.0) % Basophils % (0.0-0.4) % Absolute Granulocytes (1.4-6.9) x10^3/uL Basophils # (0-0.4) x10^3/uL Sodium (137-145) mmol/L Potassium (3.5-5.1) mmol/L Chloride (98-107) mmol/L Carbon Dioxide (22-30) mmol/L Anion Gap (5-15) MEQ/L BUN (7-17) mg/dL Creatinine (0.52-1.04) mg/dL Estimated GFR ML/MIN Glucose (74-106) mg/dL Lactic Acid 1.6 (0.4-2.0) Calcium (8.4-10.2) mg/dL Total Bilirubin (0.2-1.3) mg/dL AST (14-36) U/L ALT (0-35) U/L Alkaline Phosphatase (38-126) U/L Troponin I < 0.012 (0.000-0.034) ng/mL Serum Total Protein (6.3-8.2) g/dL Albumin (3.5-5.0) g/dL Lipase (23-300) U/L Beta HCG, Quant mIU/ml Urine Color Yellow (Yellow) Urine Appearance Clear (Clear) Urine pH 5.0 (4.6-8.0) Ur Specific [place] 1.015 (1.005-1.030) Urine Protein Negative (Negative) Urine Glucose (UA) Negative (Negative) mg/dL Urine Ketones Negative (Negative) Urine Blood Trace (Negative) Urine Nitrite Negative (Negative) Urine Bilirubin Negative (Negative) Urine Urobilinogen 0.2 (0.2) mg/dL Ur Leukocyte Esterase Negative (Negative) U Hyaline Cast (Auto) NONE SEEN (0-2) /LPF Urine Microscopic RBC 3-5 (0-5) /HPF Urine Microscopic WBC 0-2 (0-5) /HPF Ur Epithelial Cells None Seen (None Seen) /HPF Urine Bacteria None Seen (None Seen) /HPF Urine Culture Reflexed NO (NO) 12/09/22 12/09/22 Range/Units 11:37 11:37 WBC 5.1 (4.0-10.5) x10^3/uL RBC 4.67 (4.1-5.4) x10^6/uL Hgb 11.6 L (12.0-16.0) g/dL Hct 37.8 (35-47) % MCV 80.9 (78-100) fL MCH 24.8 L (26-32) pg MCHC 30.7 L (32-36) g/dL RDW 16.5 H (11.5-14.0) % Plt Count 339 (150-450) x10^3/uL MPV 11.0 (7.5-11.0) fL Gran % 55.9 (36.0-66.0) % Immature Gran % (Auto) 0.2 (0.00-0.4) % Nucleat RBC Rel Count 0.0 (0.00-0.1) % Eos # (Auto) 0.27 (0-0.5) x10^3/uL Immature Gran # (Auto) 0.01 (0.00-0.03) x10^3u/L Absolute Lymphs (auto) 1.53 (1.0-4.6) x10^3/uL Absolute Monos (auto) 0.40 (0.0-1.3) x10^3/uL Absolute Nucleated RBC 0.00 (0.00-0.01) x10^3u/L Lymphocytes % 29.8 (24.0-44.0) % Monocytes % 7.8 (0.0-12.0) % Eosinophils % 5.3 H (0.00-5.0) % Basophils % 1.0 (0.0-0.4) % Absolute Granulocytes 2.87 (1.4-6.9) x10^3/uL Basophils # 0.05 (0-0.4) x10^3/uL Sodium 137 (137-145) mmol/L Potassium 3.6 (3.5-5.1) mmol/L Chloride 106 (98-107) mmol/L Carbon Dioxide 18 L (22-30) mmol/L Anion Gap 16.6 H (5-15) MEQ/L BUN 14 (7-17) mg/dL Creatinine 0.67 (0.52-1.04) mg/dL Estimated GFR > 60.0 ML/MIN Glucose 95 (74-106) mg/dL Lactic Acid (0.4-2.0) Calcium 8.7 (8.4-10.2) mg/dL Total Bilirubin 0.40 (0.2-1.3) mg/dL AST 43 H (14-36) U/L ALT 39 H (0-35) U/L Alkaline Phosphatase 74 (38-126) U/L Troponin I (0.000-0.034) ng/mL Serum Total Protein 7.7 (6.3-8.2) g/dL Albumin 4.5 (3.5-5.0) g/dL Lipase 42 (23-300) U/L Beta HCG, Quant < 2.39 mIU/ml Urine Color (Yellow) Urine Appearance (Clear) Urine pH (4.6-8.0) Ur Specific [place] (1.005-1.030) Urine Protein (Negative) Urine Glucose (UA) (Negative) mg/dL Urine Ketones (Negative) Urine Blood (Negative) Urine Nitrite (Negative) Urine Bilirubin (Negative) Urine Urobilinogen (0.2) mg/dL Ur Leukocyte Esterase (Negative) U Hyaline Cast (Auto) (0-2) /LPF Urine Microscopic RBC (0-5) /HPF Urine Microscopic WBC (0-5) /HPF Ur Epithelial Cells (None Seen) /HPF Urine Bacteria (None Seen) /HPF Urine Culture Reflexed (NO) - Progress Progress: improved, re-examined Progress Note: 12/09/22 13:42 42 years old female with history of hypertension, migraines presented in the ER with chief complaint of headache, dizziness, elevated blood pressure and feeling of fatigue and tiredness. Patient reports having some kind of bite on the left side of the neck with enlarged nodes for which she was evaluated at outpatient, was diagnosed with shingles and on Valtrex. She denies any fever or chills. No cough or difficulty breathing reported. Denies any focal numbness tingling or weakness. Patient reports headache is mostly frontal, 8/10 intensity and is not like her routine migraines. Patient checked her blood pressure and it was in 180s, usually it is in 130s. She has a nonfocal neuro exam. She has bilateral maxillary tenderness. Lungs bilateral clear to auscultation. The EKG is normal sinus rhythm with no acute ischemic changes. Normal white count, fairly unremarkable chemistries, mild elevation in liver enzymes. I have obtained chest x-ray which is negative and CT head negative for any acute intracranial finding but does have sinusitis. I believe her headache is secondary to sinusitis and feeling of generalized achiness, dizziness could be due to sinusitis versus tick bite on the left neck. Will obtain tick panel. Patient will be started on doxycycline which would cover for both sinusitis and tick bite. She is given Toradol Reglan and Benadryl, on reevaluation her headache is improved. Neuro exam remained nonfocal on repeated evaluation. No signs of meningismus. Blood pressure improved to 130s without any antihypertensive. Recommended continue with curr ent medication and follow-up outpatient. At this point I do not think she needs any other work-up and is stable for discharge. Discussed signs symptoms of worsening needing return to ER which she seems understanding. 12/09/22 13:46 Counseled pt/family regarding: lab results, diagnosis, need for follow-up, rad results Medical Desision Making - Independent Historian Additional History obtained from: Relative/friend - Diagnostic Testing Diagnostic test were ordered, analyzed, and reviewed by me: Yes Radiological Interpretation: Reviewed by me - Risk of complications The pt has a mod risk of morbidity or mortality based on: Need for prescription drug management - Departure Departure Disposition: Home Clinical Impression: Acute sinusitis, Migraine, Hypertension Condition: Stable Critical Care Time: No Referrals: JULISA CLEMENTE, DAVIDA [Primary Care Provider] - Follow up with PCP 1 day Instructions: Malignant Hypertension (DC) Additional Instructions: Take Tylenol/ibuprofen as needed. Monitor your blood pressure regularly, keep a log and follow-up with primary care for reevaluation. Return to ER for intractable headache, numbness tingling focal weakness, fever chills etc. Prescriptions: Doxycycline Hyclate 100 mg [Vibramycin 100 MG] 100 mg PO BID #20 tab
[2022-12-09 14:08] VITALS: BP 136/94; PULSE 82; RESP 18
[2022-12-09 18:02] VITALS: O2SAT 98
[2022-12-13 16:04] LABS: Babesia microti, PCR Negative (Negative)
== END 2022-12-09 14:17 | disposition home or self-care (01) ==
LOC: ED 10:42
DX: J01.00 Acute maxillary sinusitis, unspecified (principal); G43.909 Migraine, unspecified, not intractable, without status migrainosus; I10 Essential (primary) hypertension; R42 Dizziness and giddiness; R53.83 Other fatigue; Z79.899 Other long term (current) drug therapy
CPT/HCPCS: 36000; 36415; 70450; 71045; 80053; 81001; 83605; 83690; 84484; 84702; 85025; 87484; 93005; 96374; 96375; 99284; J1200; J1885

== ENCOUNTER 2023-04-28 08:04 | Emergency (ER) | payer OTHER ==
[2023-04-28 08:21] VITALS: TEMP 97.6
[2023-04-28] MEDS ORDERED: MORPHINE SULFATE 4 MG INJ ONE (08:40)
[2023-04-28] MEDS ORDERED: BABY ASPIRIN 81 MG CHEW ONE (08:40)
[2023-04-28] MEDS ORDERED: Zofran 4 MG/2 ML VIAL ONE (08:40)
[2023-04-28] MEDS: MORPHINE SULFATE 4 MG INJ IV ONE (08:42)
[2023-04-28] MEDS: Zofran 4 MG/2 ML VIAL IV ONE (08:42)
[2023-04-28] MEDS: BABY ASPIRIN 81 MG CHEW PO ONE (08:42)
[2023-04-28 09:03] LABS: Absolute Neutrophil Ct (ANC) 3.86 x10^3/uL (1.4-6.9); BASOPHIL % 1.1 % (0.0-0.4); Basophil (Absolute #) 0.08 x10^3/uL (0-0.4); Eosinophil % 3.8 % (0.00-5.0); Eosinophil (Absolute #) 0.27 x10^3/uL (0-0.5); Hematocrit 46.3 % (35-47); IMMATURE GRAN # 0.01 x10^3u/L (0.00-0.03); IMMATURE GRAN % 0.1 % (0.00-0.4); Lymphocyte (Absolute #) 2.44 x10^3/uL (1.0-4.6); Lymphocytes % 34.2 % (24.0-44.0); Mean Cell Volume 83.9 fL (78-100); Mean Corpuscular Hemoglobin 25.4 pg (26-32); Mean Corpuscular Hgb Concent. 30.2 g/dL (32-36); Mean Platelet Volume 12.1 fL (7.5-11.0); Monocyte (Absolute #) 0.48 x10^3/uL (0.0-1.3); Monocytes % 6.7 % (0.0-12.0); Neutrophil % 54.1 % (36.0-66.0); Platelet Count 284 x10^3/uL (150-450); Red Blood Count 5.52 x10^6/uL (4.1-5.4); Red Cell Distribution Width 16.2 % (11.5-14.0); White Blood Count 7.1 x10^3/uL (4.0-10.5)
--- NOTE | 2023-04-28 09:18 | ERPHSYRPT ---
- History of Present Illness Time Seen by Provider: 04/28/23 08:16 Historian: patient Exam Limitations: no limitations Patient Subjective Stated Complaint: Chest pain Triage Nursing Assessment: Patient ambulated back to ED and transferred self to bed. Patient A+O X3. Patient's skin pink, warm and dry. Patient complains of chest pain intermittent for the day. Patient states she was woke up with chest pain at 0300 yesterday morning that went into left shoulder and down left arm. Patient also complains of left sided neck pain where her carotid is she stated. Patient currently complains of pain to chest/ left shoulder/arm 04/30. Patient also complains of headache, nausea, dizziness, and ringing in the ears. Physician History: 42 years old female with history of hypertension, anxiety/depression presented in the ER with complaints of left-sided chest pain waking her up from sleep yesterday morning around 3 AM. Some radiation to the left arm/neck, moderate intensity, dull to sharp with no associated palpitations or shortness of breath. Patient reports having similar symptoms of chest pain in the past since she has been started on Effexor but this time pain is not going away since yesterday. Patient denies any fever or chills but has minimal nonproductive cough. Also reports having mild headache with a history of migraines without any numbness tingling or focal weakness. Denies any difficulty movements of neck. Nitro Today/Relief: no nitro taken today Aspirin Treatment Today: 81 mg x 4 Allergies/Adverse Reactions: No Known Drug Allergies Allergy (Verified 04/28/23 08:15) Home Medications: Topiramate 1 tab PO DAILY 01/24/21 [History] Valacyclovir HCl [valACYclovir] 1,000 mg PO DAILY 03/27/22 [History] Hx Tetanus, Diphtheria Vaccination/Date Given: Yes Hx Influenza Vaccination/Date Given: No Hx Pneumococcal Vaccination/Date Given: No Immunizations Up to Date: Yes Travel Risk - International Travel Have you traveled outside of the country in past 3 weeks: No - Coronavirus Screening Are you exhibiting any of the following symptoms?: No Close contact with a COVID-19 positive Pt in past 14-21 Days: No - Vaccine Status Have you recieved a Covid-19 vaccination: Yes 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: [employer] - Vaccination Dates Date of 2cond Vaccination (if applicable): January 2021 - Review of Systems Constitutional: No Symptoms Eyes: No Symptoms Ears, Nose, & Throat: No Symptoms Respiratory: Cough Cardiac: Chest Pain Abdominal/Gastrointestinal: No Symptoms Genitourinary Symptoms: No Symptoms Musculoskeletal: No Symptoms Skin: No Symptoms Neurological: Headache Psychological: Anxiety, Depression Endocrine: No Symptoms Hematologic/Lymphatic: No Symptoms Immunological/Allergic: No Symptoms - Past Medical History Pertinent Past Medical History: Yes Neurological History: Migraines ENT History: No Pertinent History Cardiac History: No Pertinent History Respiratory History: No Pertinent History Endocrine Medical History: No Pertinent History Musculoskeletal History: No Pertinent History GI Medical History: No Pertinent History History: No Pertinent History Psycho-Social History: Depression Female Reproductive Disorders: No Pertinent History - Past Surgical History Past Surgical History: Yes Neuro Surgical History: No Pertinent History Cardiac: No Pertinent History Respiratory: No Pertinent History Gastrointestinal: Cholecystectomy Genitourinary: No Pertinent History Musculoskeletal: No Pertinent History Female Surgical History: No Pertinent History - Social History Smoking Status: Never smoker Exposure to second hand smoke: No Drug Use: none Patient Lives Alone: No - Female History Hx Last Menstrual Period: currently Hx Now: (unkn) - Nursing Vital Signs Nursing Vital Signs: Initial Vital Signs Pulse Rate 83 04/28/23 08:13 Respiratory Rate 14 04/28/23 08:13 Blood Pressure 150/116 04/28/23 08:13 O2 Sat by Pulse Oximetry 100 04/28/23 08:13 Pain Scale Pain Intensity 0 - Physical Exam General Appearance: no apparent distress, alert Eye Exam: PERRL/EOMI Ears, Nose, Throat Exam: normal ENT inspection Neck Exam: normal inspection, non-tender, supple, full range of motion Respiratory Exam: normal breath sounds, lungs clear Cardiovascular Exam: regular rate/rhythm, normal heart sounds Gastrointestinal/Abdomen Exam: soft, normal bowel sounds, No tenderness Back Exam: normal inspection, normal range of motion Extremity Exam: normal inspection, normal range of motion, pelvis stable Neurologic Exam: alert, oriented x 3, cooperative, guest services agent II-XII nml as tested, normal mood/affect, nml cerebellar function, nml station & gait, sensation nml, No motor deficits Skin Exam: normal color SpO2 Interpretation: normal SpO2: 100 O2 Delivery: Room Air - Course EKG Interpreted by Me: RATE, Sinus Rhythm, NORMAL AXIS, NORMAL INTERVALS Ordered Tests: Active Orders 24 hr Category Date 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 04/28/23 08:34 Active EKG-ER Only STAT Care 04/28/23 08:33 Active IV Insertion STAT Care 04/28/23 08:33 Active CHEST 1 VIEW (PORTABLE) Stat Exams 04/28/23 08:34 Completed CHEST WITH CONTRAST [CT] Stat Exams 04/28/23 11:21 Completed CBC W DIFF Stat Lab 04/28/23 08:33 Completed CK-Creatinine Phosphokinase Stat Lab 04/28/23 09:00 Completed CMP Stat Lab 04/28/23 09:00 Completed D-DIMER QUANTITATIVE Stat Lab 04/28/23 09:00 Completed HCG QUALITATIVE, URINE Stat Lab 04/28/23 Completed NT PRO BNPII Stat Lab 04/28/23 09:00 Completed TROPONIN Q4H Lab 04/28/23 09:00 Completed TROPONIN Q4H Lab 04/28/23 11:48 Completed TROPONIN Q4H Lab 04/28/23 16:45 Ordered Medication Summary Discontinued Medications Generic Name Dose Route Start Last Admin Trade Name Freq PRN Reason Stop Dose Admin Aspirin 324 mg 04/28/23 08:33 04/28/23 08:42 Aspirin 81 Mg Tab.Chew PO 04/28/23 08:34 324 mg STAT ONE Administration Aspirin Confirm 04/28/23 08:40 Aspirin 81 Mg Tab.Chew Administered 04/28/23 08:41 Dose 324 mg .ROUTE .STK-MED ONE Morphine Sulfate 4 mg 04/28/23 08:33 04/28/23 08:42 Morphine Sulfate 4 Mg/Ml Injection IV 04/28/23 08:34 4 mg STAT ONE Administration Morphine Sulfate Confirm 04/28/23 08:40 Morphine Sulfate 4 Mg/Ml Injection Administered 04/28/23 08:41 Dose 4 mg .ROUTE .STK-MED ONE Ondansetron HCl 4 mg 04/28/23 08:33 04/28/23 08:42 Ondansetron Hcl 4 Mg/2 Ml Vial IV 04/28/23 08:34 4 mg STAT ONE Administration Ondansetron HCl Confirm 04/28/23 08:40 Ondansetron Hcl 4 Mg/2 Ml Vial Administered 04/28/23 08:41 Dose 4 mg .ROUTE .STK-MED ONE Potassium Chloride 40 meq 04/28/23 09:33 04/28/23 09:49 Potassium Chloride Tab 10 Meq Tab PO 04/28/23 09:34 40 meq STAT ONE Administration Potassium Chloride Confirm 04/28/23 09:48 Potassium Chloride Tab 10 Meq Tab Administered 04/28/23 09:49 Dose 40 meq .ROUTE .STK-MED ONE Lab/Rad Data: Laboratory Result Diagrams 04/28/23 08:33 04/28/23 09:00 Laboratory Results 04/28/23 04/28/23 04/28/23 Range/Units Unknown 11:48 09:00 WBC (4.0-10.5) x10^3/uL RBC (4.1-5.4) x10^6/uL Hgb (12.0-16.0) g/dL Hct (35-47) % MCV (78-100) fL MCH (26-32) pg MCHC (32-36) g/dL RDW (11.5-14.0) % Plt Count (150-450) x10^3/uL MPV (7.5-11.0) fL Gran % (36.0-66.0) % Immature Gran % (Auto) (0.00-0.4) % Nucleat RBC Rel Count (0.00-0.1) % Eos # (Auto) (0-0.5) x10^3/uL Immature Gran # (Auto) (0.00-0.03) x10^3u/L Absolute Lymphs (auto) (1.0-4.6) x10^3/uL Absolute Monos (auto) (0.0-1.3) x10^3/uL Absolute Nucleated RBC (0.00-0.01) x10^3u/L Lymphocytes % (24.0-44.0) % Monocytes % (0.0-12.0) % Eosinophils % (0.00-5.0) % Basophils % (0.0-0.4) % Absolute Granulocytes (1.4-6.9) x10^3/uL Basophils # (0-0.4) x10^3/uL D-Dimer (0.0-0.50) mg/L Sodium (135-145) mmol/L Potassium (3.5-5.1) mmol/L Chloride (98-107) mmol/L Carbon Dioxide (22-30) mmol/L Anion Gap (5-15) MEQ/L BUN (7-17) mg/dL Creatinine (0.52-1.04) mg/dL Estimated GFR ML/MIN Glucose (74-106) mg/dL Calcium (8.4-10.2) mg/dL Total Bilirubin (0.2-1.3) mg/dL AST (14-36) U/L ALT (0-35) U/L Alkaline Phosphatase (38-126) U/L Creatine Kinase (30-135) U/L Troponin I < 0.012 < 0.012 (0.000-0.034) ng/mL NT-Pro-B Natriuret Pep (<300) pg/mL Serum Total Protein (6.3-8.2) g/dL Albumin (3.5-5.0) g/dL Urine HCG, Qual NEGATIVE (NEGATIVE) 04/28/23 04/28/23 04/28/23 Range/Units 09:00 09:00 08:33 WBC 7.1 (4.0-10.5) x10^3/uL RBC 5.52 H (4.1-5.4) x10^6/uL Hgb 14.0 (12.0-16.0) g/dL Hct 46.3 (35-47) % MCV 83.9 (78-100) fL MCH 25.4 L (26-32) pg MCHC 30.2 L (32-36) g/dL RDW 16.2 H (11.5-14.0) % Plt Count 284 (150-450) x10^3/uL MPV 12.1 H (7.5-11.0) fL Gran % 54.1 (36.0-66.0) % Immature Gran % (Auto) 0.1 (0.00-0.4) % Nucleat RBC Rel Count 0.0 (0.00-0.1) % Eos # (Auto) 0.27 (0-0.5) x10^3/uL Immature Gran # (Auto) 0.01 (0.00-0.03) x10^3u/L Absolute Lymphs (auto) 2.44 (1.0-4.6) x10^3/uL Absolute Monos (auto) 0.48 (0.0-1.3) x10^3/uL Absolute Nucleated RBC 0.00 (0.00-0.01) x10^3u/L Lymphocytes % 34.2 (24.0-44.0) % Monocytes % 6.7 (0.0-12.0) % Eosinophils % 3.8 (0.00-5.0) % Basophils % 1.1 (0.0-0.4) % Absolute Granulocytes 3.86 (1.4-6.9) x10^3/uL Basophils # 0.08 (0-0.4) x10^3/uL D-Dimer 0.70 H* (0.0-0.50) mg/L Sodium 144 (135-145) mmol/L Potassium 3.0 L* (3.5-5.1) mmol/L Chloride 107 (98-107) mmol/L Carbon Dioxide 23 (22-30) mmol/L Anion Gap 16.9 H (5-15) MEQ/L BUN 8 (7-17) mg/dL Creatinine 0.91 (0.52-1.04) mg/dL Estimated GFR 80.3 ML/MIN Glucose 84 (74-106) mg/dL Calcium 9.4 (8.4-10.2) mg/dL Total Bilirubin 0.30 (0.2-1.3) mg/dL AST 52 H (14-36) U/L ALT 50 H (0-35) U/L Alkaline Phosphatase 81 (38-126) U/L Creatine Kinase 123 (30-135) U/L Troponin I (0.000-0.034) ng/mL NT-Pro-B Natriuret Pep < 20.0 (<300) pg/mL Serum Total Protein 8.7 H (6.3-8.2) g/dL Albumin 5.0 (3.5-5.0) g/dL Urine HCG, Qual (NEGATIVE) - Progress Progress: improved, re-examined Air Movement: good Progress Note: 04/28/23 15:28 42-year-old is evaluated for intermittent chest pain and some migraine per. EKG is normal sinus rhythm with no acute ischemic changes. She has a nonfocal neuroexam throughout stay in the ER. She is given morphine for symptomatic r elief, on reevaluation her chest pain and headache is improved. Negative troponins x 2. Patient has elevated D-dimer, obtained CTA chest which is negative for PE or any other acute intrathoracic findings. With her pain going off and on for quite some time and continuous for so many hours, 2 negative troponins rules it out, do not think patient needs to be admitted. Her pain is not very specific for CAD, has low heart score, I would recommend outpatient follow-up with primary care and cardiology. Discussed signs symptoms of worsening needing return to ER which she seems understanding. Potassium is mildly low 3.0, given oral replacement and recommended increased intake of diet containing potassium for next few days. 04/28/23 15:36 Blood Culture(s) Obtained: No Antibiotics given: No Counseled pt/family regarding: lab results, diagnosis, need for follow-up, rad results Medical Desision Making - Diagnostic Testing Diagnostic test were ordered, analyzed, and reviewed by me: Yes Radiological Interpretation: Reviewed by me - Departure Departure Disposition: Home Clinical Impression: Migraine, Atypical chest pain, Hypokalemia Condition: Stable Critical Care Time: No Referrals: JULISA CLEMENTE NP [Primary Care Provider] - Follow up with PCP 1 day TREVOR MENDOZA [CONSULTING PHYSICIAN] - Follow up/PCP as directed (Call tomorrow for appointment for reevaluation) Instructions: Angina (DC) Additional Instructions: Take Tylenol/ibuprofen as needed. Follow-up with your primary care and cardiology for reevaluation. Return to ER for worsening chest pain or if having difficulty breathing, intractable headache, numbness tingling or focal weakness etc.
--- NOTE | 2023-04-28 09:20 | XRAY ---
Indication: Chest pain. Comparison: December 09, 2022 Portable chest again demonstrating normal heart, lungs, and bony thorax with incidental right axillary surgical clips.
[2023-04-28 09:26] LABS: ALKALINE PHOSPHATASE 81 U/L (38-126); ANION GAP 16.9 MEQ/L (5-15); BLOOD UREA NITROGEN 8 mg/dL (7-17); CHLORIDE 107 mmol/L (98-107); CK-Creatinine Phosphokinase 123 U/L (30-135); Calcium 9.4 mg/dL (8.4-10.2); Carbon Dioxide 23 mmol/L (22-30); Creatinine 1 0.91 mg/dL (0.52-1.04); EST GLOMERULAR FILTRATION RATE 80.3 ML/MIN; Glucose 84 mg/dL (74-106); NT PRO BNPII < 20.0 pg/mL (<300); SGOT/AST 52 U/L (14-36); SGPT/ALT 50 U/L (0-35); SODIUM 144 mmol/L (135-145); Total Protein 8.7 g/dL (6.3-8.2)
[2023-04-28] MEDS ORDERED: Klor Con ONE (09:48)
[2023-04-28] MEDS: Klor Con PO ONE (09:49)
[2023-04-28 11:23] LABS: HCG URINE TEST NEGATIVE (NEGATIVE)
--- NOTE | 2023-04-28 15:15 | XRAY ---
Indication: Chest pain. Pulmonary embolus. Multiple contiguous axial images obtained through the chest using 80 cc Isovue 370 contrast and PE protocol. Comparison: January 24, 2021 Adequate opacification of the pulmonary arteries to includes the lobar and segmental branches. No pulmonary embolus. Heart not enlarged. Aorta is normal in course and caliber. No pathologic mediastinal/hilar lymphadenopathy. Lungs inflated and remain clear. Bony thorax intact. Limited upper abdomen again demonstrate cholecystotomy clips. Impression: Continued normal CT PE exam.
[2023-04-28 16:03] VITALS: BP 112/74; PULSE 72; RESP 12; O2SAT 97
== END 2023-04-28 16:11 | disposition home or self-care (01) ==
LOC: ED 08:04
DX: R07.9 Chest pain, unspecified (principal); G43.909 Migraine, unspecified, not intractable, without status migrainosus; E87.6 Hypokalemia; I10 Essential (primary) hypertension; F41.9 Anxiety disorder, unspecified; Z79.899 Other long term (current) drug therapy; Z20.828 Contact with and (suspected) exposure to other viral communicable diseases
CPT/HCPCS: 36000; 36415; 71045; 71260; 80053; 81025; 82550; 83880; 84484; 85025; 85379; 93005; 93041; 96374; 96375; 99284; J2270; J2405; A9270-GY

== ENCOUNTER 2023-12-13 22:09 | Observation (INO) | payer OTHER ==
[2023-12-13 22:57] LABS: Absolute Neutrophil Ct (ANC) 3.79 x10^3/uL (1.56-6.13); BASOPHIL % 0.9 % (0.1-1.2); Basophil (Absolute #) 0.06 x10^3/uL (0.01-0.08); Eosinophil % 4.4 % (0.7-5.8); Eosinophil (Absolute #) 0.31 x10^3/uL (0.04-0.36); Hematocrit 37.5 % (34.1-44.9); Hemoglobin 11.7 g/dL (11.2-15.7); IMMATURE GRAN # 0.01 x10^3u/L (0.001-0.031); IMMATURE GRAN % 0.1 % (0.001-0.429); Lymphocyte (Absolute #) 2.21 x10^3/uL (1.18-3.74); Lymphocytes % 31.7 % (19.3-51.7); Mean Cell Volume 81.5 fL (79.4-94.8); Mean Corpuscular Hemoglobin 25.4 pg (25.6-32.2); Mean Corpuscular Hgb Concent. 31.2 g/dL (32.2-35.5); Mean Platelet Volume 10.7 fL (9.4-12.3); Monocyte (Absolute #) 0.59 x10^3/uL (0.24-0.86); Monocytes % 8.5 % (4.7-12.5); Neutrophil % 54.4 % (34.0-71.1); Platelet Count 310 x10^3/uL (182-369); Red Cell Distribution Width 16.6 % (11.7-14.4)
--- NOTE | 2023-12-13 23:09 | ERPHSYRPT ---
- History of Present Illness Time Seen by Provider: 12/13/23 22:30 Historian: patient Exam Limitations: no limitations Patient Subjective Stated Complaint: pt states this morning she had a burst of pain in her lt neck and after that the pain went down to her lt chest. now pain in lt chest, lt neck, and lt shoulder. states pain is worse when she is active. Triage Nursing Assessment: pt alert and oriented, answers questions approp. pt ambulates into room iwth steady gait noted. respirations nonlabored. skin warm and dry. heart rate 90 on monitor, sinus rhythm. Physician History: 43-year-old female presents to our ED for evaluation of progressive neck pain. Patient followed up with her primary care provider who currently has an MRI scheduled. However patient is here as her left sided neck pain progressively worsened. Patient felt a sudden onset of pain radiating from her left neck into her chest and arm. Patient felt nauseous. No vomiting. Patient has no significant cardiac history. No trauma no fever. Symptoms are mild to moderate in intensity. Symptoms are progressive. No specific worsening or improving factors. Patient otherwise feels well. She voices no other complaints or concerns at this time. Portions of this note were created with voice recognition technology. There may be grammatical, spelling, punctuation or sound alike errors Timing/Duration: today Activities at Onset: none Quality: aching Location: other (Left chest) Chest Pain Radiation: jaw, neck Severity of Pain-Max: moderate Severity of Pain-Current: mild Modifying Factors: Improves With: nothing Associated Symptoms: nausea, diaphoresis Prior Chest Pain/Cardiac Workup: no prior cardiac workup Nitro Today/Relief: no nitro taken today Aspirin Treatment Today: no aspirin today Allergies/Adverse Reactions: No Known Drug Allergies Allergy (Verified 04/28/23 08:15) Home Medications: Topiramate 1 tab PO DAILY 01/24/21 [History] hydroCHLOROthiazide [Hydrochlorothiazide] 12.5 mg PO DAILY 12/13/23 [History] Hx Tetanus, Diphtheria Vaccination/Date Given: Yes Hx Influenza Vaccination/Date Given: Yes Hx Pneumococcal Vaccination/Date Given: No Immunizations Up to Date: Yes Travel Risk - International Travel Have you traveled outside of the country in past 3 weeks: No - Emerging Infectious Disease Are you exhibiting symptoms associated with any current EIDs: No - Review of Systems Constitutional: No Symptoms, No Fever, No Chills Eyes: No Symptoms Ears, Nose, & Throat: No Symptoms Respiratory: No Symptoms, No Cough, No Dyspnea Cardiac: No Symptoms, No Chest Pain, No Edema, No Syncope Abdominal/Gastrointestinal: No Symptoms, No Abdominal Pain, No Nausea, No Vomiting, No Diarrhea Genitourinary Symptoms: No Symptoms, No Dysuria Musculoskeletal: No Symptoms, No Back Pain, No Neck Pain Skin: No Symptoms, No Rash Neurological: No Symptoms, No Dizziness, No Focal Weakness, No Sensory Changes Psychological: No Symptoms Endocrine: No Symptoms Hematologic/Lymphatic: No Symptoms Immunological/Allergic: No Symptoms All Other Systems: Reviewed and Negative - Past Medical History Pertinent Past Medical History: Yes Neurological History: Migraines ENT History: No Pertinent History Cardiac History: No Pertinent History Respiratory History: No Pertinent History Endocrine Medical History: No Pertinent History Musculoskeletal History: No Pertinent History GI Medical History: No Pertinent History History: No Pertinent History Psycho-Social History: Anxiety, Depression Female Reproductive Disorders: No Pertinent History - Past Surgical History Past Surgical History: Yes Neuro Surgical History: No Pertinent History Cardiac: No Pertinent History Respiratory: No Pertinent History Gastrointestinal: Cholecystectomy Genitourinary: No Pertinent History Musculoskeletal: No Pertinent History Female Surgical History: No Pertinent History Other Surgical History: cyst removed from rt axilla - Female History Hx Last Menstrual Period: 2 weeks Hx Now: No - Social History Smoking Status: Never smoker Exposure to second hand smoke: No Drug Use: none Patient Lives Alone: No - Social Determinants of Health Will the patient participate in the screening: Unable to obtain - Nursing Vital Signs Nursing Vital Signs: Initial Vital Signs Temperature 97.8 F 12/13/23 22:17 Pulse Rate 93 H 12/13/23 22:17 Respiratory Rate 18 12/13/23 22:17 Blood Pressure 143/90 12/13/23 22:17 O2 Sat by Pulse Oximetry 100 12/13/23 22:17 Pain Scale Pain Intensity 2 - Physical Exam General Appearance: no apparent distress, alert Eye Exam: PERRL/EOMI, eyes nml inspection Ears, Nose, Throat Exam: normal ENT inspection, moist mucous membranes Neck Exam: normal inspection, non-tender, supple, full range of motion Respiratory Exam: normal breath sounds, lungs clear, airway intact, No respiratory distress Cardiovascular Exam: regular rate/rhythm, normal heart sounds Gastrointestinal/Abdomen Exam: soft, No tenderness, No mass Back Exam: normal inspection, No CVA tenderness, No vertebral tenderness Extremity Exam: normal inspection, normal range of motion Neurologic Exam: alert, oriented x 3, cooperative, normal mood/affect, sensation nml, No motor deficits Skin Exam: normal color, warm, dry Lymphatic Exam: No adenopathy SpO2 Interpretation: normal SpO2: 99 O2 Delivery: Room Air - Course Nursing assessment & vital signs reviewed: Yes EKG Interpreted by Me: RATE ([id number]), Sinus Rhythm, NORMAL AXIS, NORMAL INTERVALS, NORMAL QRS - CT Exams Chest CT Interpretation: Tele-radiologist Report (No PE, no lung pathology) Ordered Tests: Active Orders 24 hr Category Date Time Status Foreign Law Consultant STAT Care 12/13/23 22:39 Active EKG-ER Only STAT Care 12/13/23 22:38 Active EKG-ER Only STAT Care 12/14/23 04:28 Active IV Insertion STAT Care 12/13/23 22:38 Active Pulse Oximetry (ED) STAT Care 12/13/23 22:38 Active CHEST WITH CONTRAST [CT] Stat Exams 12/14/23 00:15 Completed NECK WITH CONTRAST [CT] Stat Exams 12/14/23 00:15 Completed CBC W DIFF Stat Lab 12/13/23 22:38 Completed CMP Stat Lab 12/13/23 22:50 Completed D-DIMER QUANTITATIVE Stat Lab 12/13/23 22:50 Completed NT PRO BNPII Stat Lab 12/13/23 22:50 Completed TROPONIN Q4H Lab 12/13/23 22:50 Completed TROPONIN Q4H Lab 12/14/23 03:27 Completed TROPONIN Q4H Lab 12/14/23 06:45 Ordered UA W/RFX UR CULTURE Stat Lab 12/13/23 23:51 Completed Transfer Order Routine Transfer 12/14/23 Ordered Medication Summary Discontinued Medications Generic Name Dose Route Start Last Admin Trade Name Freq PRN Reason Stop Dose Admin Aspirin 324 mg 12/14/23 04:23 12/14/23 04:28 Aspirin 81 Mg Tab.Chew PO 12/14/23 04:24 324 mg STAT ONE Administration Aspirin Confirm 12/14/23 04:27 Aspirin 81 Mg Tab.Chew Administered 12/14/23 04:28 Dose 324 mg .ROUTE .STK-MED ONE Nitroglycerin 1 gm 12/14/23 04:22 12/14/23 04:28 Nitroglycerin 1 Gm Packet TOP 12/14/23 04:23 1 gm STAT ONE Administration Nitroglycerin Confirm 12/14/23 04:27 Nitroglycerin 1 Gm Packet Administered 12/14/23 04:28 Dose 1 gm .ROUTE .STK-MED ONE Lab/Rad Data: Laboratory Result Diagrams 12/13/23 22:38 12/13/23 22:50 Laboratory Results 12/14/23 12/13/23 12/13/23 Range/Units 03:27 23:51 22:50 WBC (3.98-10.04) x10^3/uL RBC (3.93-5.22) x10^6/uL Hgb (11.2-15.7) g/dL Hct (34.1-44.9) % MCV (79.4-94.8) fL MCH (25.6-32.2) pg MCHC (32.2-35.5) g/dL RDW (11.7-14.4) % Plt Count (182-369) x10^3/uL MPV (9.4-12.3) fL Gran % (34.0-71.1) % Immature Gran % (Auto) (0.001-0.429) % Nucleat RBC Rel Count (0.00-0.2) % Eos # (Auto) (0.04-0.36) x10^3/uL Immature Gran # (Auto) (0.001-0.031) x10^3u/L Absolute Lymphs (auto) (1.18-3.74) x10^3/uL Absolute Monos (auto) (0.24-0.86) x10^3/uL Absolute Nucleated RBC (0.00-0.012) x10^3u/L Lymphocytes % (19.3-51.7) % Monocytes % (4.7-12.5) % Eosinophils % (0.7-5.8) % Basophils % (0.1-1.2) % Absolute Granulocytes (1.56-6.13) x10^3/uL Basophils # (0.01-0.08) x10^3/uL D-Dimer 0.50 (0.0-0.50) mg/L Sodium (135-145) mmol/L Potassium (3.5-5.1) mmol/L Chloride (98-107) mmol/L Carbon Dioxide (22-30) mmol/L Anion Gap (5-15) MEQ/L BUN (7-17) mg/dL Creatinine (0.52-1.04) mg/dL Estimated GFR ML/MIN Glucose (74-106) mg/dL Calcium (8.4-10.2) mg/dL Total Bilirubin (0.2-1.3) mg/dL AST (14-36) U/L ALT (0-35) U/L Alkaline Phosphatase (38-126) U/L Troponin I < 0.012 (0.000-0.033) ng/mL NT-Pro-B Natriuret Pep (<300) pg/mL Serum Total Protein (6.3-8.2) g/dL Albumin (3.5-5.0) g/dL Urine Color Yellow (Yellow) Urine Appearance Clear (Clear) Urine pH 7.5 (4.6-8.0) Ur Specific [place] 1.015 (1.005-1.030) Urine Protein Negative (Negative) Urine Glucose (UA) Negative (Negative) mg/dL Urine Ketones Negative (Negative) Urine Blood Negative (Negative) Urine Nitrite Negative (Negative) Urine Bilirubin Negative (Negative) Urine Urobilinogen 0.2 (0.2) mg/dL Ur Leukocyte Esterase Negative (Negative) U Hyaline Cast (Auto) NONE SEEN (0-2) /LPF Urine Microscopic RBC 3-5 (0-5) /HPF Urine Microscopic WBC 0-2 (0-5) /HPF Ur Epithelial Cells None Seen (None Seen) /HPF Urine Bacteria None Seen (None Seen) /HPF Urine Culture Reflexed NO (NO) 12/13/23 12/13/23 12/13/23 Range/Units 22:50 22:50 22:38 WBC 7.0 (3.98-10.04) x10^3/uL RBC 4.60 (3.93-5.22) x10^6/uL Hgb 11.7 (11.2-15.7) g/dL Hct 37.5 (34.1-44.9) % MCV 81.5 (79.4-94.8) fL MCH 25.4 L (25.6-32.2) pg MCHC 31.2 L (32.2-35.5) g/dL RDW 16.6 H (11.7-14.4) % Plt Count 310 (182-369) x10^3/uL MPV 10.7 (9.4-12.3) fL Gran % 54.4 (34.0-71.1) % Immature Gran % (Auto) 0.1 (0.001-0.429) % Nucleat RBC Rel Count 0.0 (0.00-0.2) % Eos # (Auto) 0.31 (0.04-0.36) x10^3/uL Immature Gran # (Auto) 0.01 (0.001-0.031) x10^3u/L Absolute Lymphs (auto) 2.21 (1.18-3.74) x10^3/uL Absolute Monos (auto) 0.59 (0.24-0.86) x10^3/uL Absolute Nucleated RBC 0.00 (0.00-0.012) x10^3u/L Lymphocytes % 31.7 (19.3-51.7) % Monocytes % 8.5 (4.7-12.5) % Eosinophils % 4.4 (0.7-5.8) % Basophils % 0.9 (0.1-1.2) % Absolute Granulocytes 3.79 (1.56-6.13) x10^3/uL Basophils # 0.06 (0.01-0.08) x10^3/uL D-Dimer (0.0-0.50) mg/L Sodium 140 (135-145) mmol/L Potassium 3.5 (3.5-5.1) mmol/L Chloride 108 H (98-107) mmol/L Carbon Dioxide 22 (22-30) mmol/L Anion Gap 14.6 (5-15) MEQ/L BUN 13 (7-17) mg/dL Creatinine 0.99 (0.52-1.04) mg/dL Estimated GFR 72.1 ML/MIN Glucose 79 (74-106) mg/dL Calcium 9.2 (8.4-10.2) mg/dL Total Bilirubin 0.40 (0.2-1.3) mg/dL AST 31 (14-36) U/L ALT 27 (0-35) U/L Alkaline Phosphatase 57 (38-126) U/L Troponin I < 0.012 (0.000-0.033) ng/mL NT-Pro-B Natriuret Pep < 20.0 (<300) pg/mL Serum Total Protein 7.4 (6.3-8.2) g/dL Albumin 4.3 (3.5-5.0) g/dL Urine Color (Yellow) Urine Appearance (Clear) Urine pH (4.6-8.0) Ur Specific [place] (1.005-1.030) Urine Protein (Negative) Urine Glucose (UA) (Negative) mg/dL Urine Ketones (Negative) Urine Blood (Negative) Urine Nitrite (Negative) Urine Bilirubin (Negative) Urine Urobilinogen (0.2) mg/dL Ur Leukocyte Esterase (Negative) U Hyaline Cast (Auto) (0-2) /LPF Urine Microscopic RBC (0-5) /HPF Urine Microscopic WBC (0-5) /HPF Ur Epithelial Cells (None Seen) /HPF Urine Bacteria (None Seen) /HPF Urine Culture Reflexed (NO) - Progress Progress: improved Air Movement: good Progress Note: 43-year-old female presents to our ED for evaluation of left-sided neck pain radiating to the chest. EKG sinus rhythm. Troponin negative x 2. D-dimer was high normal. CTA chest negative for PE. Patient requested CT of the neck as she has been experiencing a fullness in her neck for the past several months. CT chest negative for acute pathology. Patient reassessed. She is still experiencing pain in the chest and neck area. In light of her ongoing symptomology patient will be admitted for further evaluation/cardiac rule out. Patient reports significant dizziness when she ambulates as well. Vital stable. Time spent admit patient approximately 15 minutes. Plan of care discussed with patient. She agrees to admission at [facility] for further evaluation and treatment. Aspirin and Nitropaste administered. Portions of this note were created with voice recognition technology. There may be grammatical, spelling, punctuation or sound alike errors Complexity of problem addressed is moderate acute complicated. No critical care time. Complex of data reviewed and analyzed is extensive. Test ordered chest reviewed results analyzed and correlated clinically with history and physical exam. Management discussed with hospitalist who accepts admission to [facility]. Risk of complication and or risk of morbidity/mortality of patient management is high. Patient requires hospitalization for further evaluation and treatment. Vital stable. Time spent to admit patient is approximately 20 minutes. Plan of care established for shared decision making. No social determinants of health present to impede follow-up. Case discussed with Dr. Carol Barlow who accepts admission at 4:58 AM. Portions of this note were created with voice recognition technology. There may be grammatical, spelling, punctuation or sound alike errors 12/14/23 04:24 12/14/23 04:26 Blood Culture(s) Obtained: No Antibiotics given: No Counseled pt/family regarding: lab results, diagnosis - Departure Departure Disposition: Home Clinical Impression: Chest pain, ACS (acute coronary syndrome) Condition: Stable Critical Care Time: No Referrals: JULISA CLEMENTE NP [Primary Care Provider] - Follow up/PCP as directed
[2023-12-13 23:32] LABS: ALBUMIN 4.3 g/dL (3.5-5.0); ALKALINE PHOSPHATASE 57 U/L (38-126); ANION GAP 14.6 MEQ/L (5-15); BLOOD UREA NITROGEN 13 mg/dL (7-17); CHLORIDE 108 mmol/L (98-107); Calcium 9.2 mg/dL (8.4-10.2); Carbon Dioxide 22 mmol/L (22-30); Creatinine 1 0.99 mg/dL (0.52-1.04); EST GLOMERULAR FILTRATION RATE 72.1 ML/MIN; Glucose 79 mg/dL (74-106); NT PRO BNPII < 20.0 pg/mL (<300); Potassium 3.5 mmol/L (3.5-5.1); SGOT/AST 31 U/L (14-36); SGPT/ALT 27 U/L (0-35); SODIUM 140 mmol/L (135-145); Total Protein 7.4 g/dL (6.3-8.2)
[2023-12-14 00:50] LABS: Appearance Clear (Clear); Bacteria None Seen /HPF (None Seen); Bilirubin Negative (Negative); Blood Negative (Negative); Epithelial Cells None Seen /HPF (None Seen); Glucose, Urine Negative (Negative); Hyaline Casts NONE SEEN /LPF (0-2); Ketones Negative (Negative); Leukocyte Esterase Negative (Negative); Nitrite Negative (Negative); Ph 7.5 (4.6-8.0); Protein,Urine Dip Negative (Negative); Specific Gravity 1.015 (1.005-1.030); Urobilinogen 0.2 mg/dL (0.2); WBC 0-2 /HPF (0-5)
--- NOTE | 2023-12-14 02:47 | XRAY ---
CLINICAL HISTORY: pain COMPARISON: None. TECHNIQUE: Axial CT scan of the neck was performed with the administration of intravenous contrast. Sagittal and coronal reconstructions were obtained. 135cc isovue 370 was administered for post-contrast images. One of the following dose reduction techniques were utilized for this exam: Automated exposure control, adjustment of the mA and/or kV according to patient size, and use of iterative reconstruction. FINDINGS: Nasopharynx: Normal size and appearance. No masses or abnormal enhancement. Oropharynx: Normal size and appearance. No masses or abnormal enhancement. Larynx and Hypopharynx: Normal appearance of the laryngeal structures. Vocal cords are normal in appearance and movement. No masses or abnormal enhancement. Thyroid Gland: Normal size and morphology. No nodules or masses. Normal enhancement post-contrast. Salivary Glands: Parotid, submandibular, and sublingual glands are normal in size and appearance. No evidence of sialadenitis or masses. Lymph Nodes: No pathologically enlarged cervical lymph nodes. Normal appearance of the lymph node chains. Vascular Structures: Normal enhancement of the carotid arteries, jugular veins, and other major vessels post-contrast. No evidence of vascular malformations, aneurysms, or thrombosis. Soft Tissues: Normal appearance of the soft tissues of the neck. No abnormal masses, swelling, or fluid collections. Bones: C5-C6 and C6-C7 posterior disc-osteophytes complexes as well as C5-C6 uncovertebral hypertrophies are noted. No fractures, lytic or sclerotic lesions. Airway: The trachea and main bronchi are patent. No evidence of tracheal or bronchial stenosis or masses. IMPRESSION: 1. Unremarkable CT of the soft tissue neck with contrast. 2. C5-C6 and C6-C7 posterior disc-osteophytes complexes as well as C5-C6 uncovertebral hypertrophies are noted causing bilateral moderate to severe neuroforaminal stenosis (more at the left side) and mild central canal stenosis at C5-C6 level. Electronically Signed by: Anjali Hill MD. (12/14/2023 02:43:41 EDT)
--- NOTE | 2023-12-14 02:55 | XRAY ---
CLINICAL HISTORY: pain COMPARISON: None. TECHNIQUE: Contiguous 3.[address] images of the chest were acquired with the administration of intravenous contrast. Coronal and sagittal reconstructions were obtained. 135cc of isovue was administered for post-contrast images. One of the following dose reduction techniques was utilized for this exam: Automated exposure control, adjustment of the mA and/or kV according to patient size, and use of iterative reconstruction. One of these 3D techniques was utilized: Maximum Intensity Pixel (MIP), 3D Reconstructed Images, Volume Rendered Images, Surface Shaded Rendering. FINDINGS: Lungs: Lungs are clear with no evidence of consolidation, collapse, or focal lesions. No ground-glass opacities or interstitial changes. No pleural effusion or pleural thickening. Mediastinum: No mediastinal mass or abnormal lymphadenopathy. Normal appearance of the thymus. Hilar Structures: Normal size and configuration, no enlargement. Heart and Great Vessels: Normal heart size and configuration. No pericardial effusion. Normal caliber and course of the thoracic aorta and other great vessels. No significant atherosclerosis or aneurysm. Normal enhancement of the great vessels post-contrast. Pulmonary Arteries: No evidence of pulmonary embolism. Normal size and course of the pulmonary arteries. Esophagus: Normal course and caliber. No masses or dilatation. Bones: No fractures or lytic/sclerotic lesions. Normal bone density and alignment. No evidence of rib fractures. Chest Wall: No masses or soft tissue abnormalities. Thyroid: Normal size and morphology. No nodules or masses. Few calcifications are noted in the right axilla. IMPRESSION: 1. No evidence of pulmonary embolism. 2. No acute pulmonary pathology. 3. Few calcifications are noted in the right axilla. Electronically Signed by: Anjali Hill MD. (12/14/2023 02:50:46 EDT)
[2023-12-14] MEDS ORDERED: NITRO-BID 2% UD PACKETS ONE (04:27)
[2023-12-14] MEDS ORDERED: BABY ASPIRIN 81 MG CHEW ONE (04:27)
[2023-12-14] MEDS: NITRO-BID 2% UD PACKETS TOP ONE (04:28)
[2023-12-14] MEDS: BABY ASPIRIN 81 MG CHEW PO ONE (04:28)
--- NOTE | 2023-12-14 05:07 | PCM.HP ---
History of Present Illness - Chief Complaint Chief Complaint: Chest pain History of Present Illness: is a 43 year old female presents with chest pain and neck pain, trop negative x 2 and negative CTA of the chest. Also complains of neck pain. ED provider did not feel comfortable discharging the patient home due to active chest pain and so being admitted for one more trop check. No other complaints. - Review of Systems Constitutional: No Fever, No Chills Eyes: No Symptoms Ears, Nose, & Throat: No Symptoms Respiratory: No Cough, No Short Of Breath Cardiac: No Chest Pain, No Edema, No Syncope Abdominal/Gastrointestinal: No Abdominal Pain, No Nausea, No Vomiting, No Diarrhea Genitourinary Symptoms: No Dysuria Musculoskeletal: No Back Pain, No Neck Pain Skin: No Rash Neurological: No Dizziness, No Focal Weakness, No Sensory Changes Psychological: No Symptoms Endocrine: No Symptoms Hematologic/Lymphatic: No Symptoms Immunological/Allergic: No Symptoms Medications & Allergies Home Medications: Home Medication List Topiramate 1 tab PO DAILY 01/24/21 [History Confirmed 12/13/23] hydroCHLOROthiazide [Hydrochlorothiazide] 12.5 mg PO DAILY 12/13/23 [History Confirmed 12/13/23] Allergies/Adverse Reactions: Allergies Allergy/AdvReac Type Severity Reaction Status Date / Time No Known Drug Allergies Allergy Verified 04/28/23 08:15 - Past Medical History Past Medical History: Yes Neurological History: Migraines ENT History: No Pertinent History Cardiac History: No Pertinent History Respiratory History: No Pertinent History Endocrine Medical History: No Pertinent History Musculoskelatal History: No Pertinent History GI Medical History: No Pertinent History History: No Pertinent History Pyscho-Social History: Anxiety, Depression Reproductive Disorders: No Pertinent History - Female History Hx Last Menstrual Period: 2 weeks Are you now?: No - Past Surgical History Past Surgical History: Yes Neuro Surgical History: No Pertinent History Cardiac History: No Pertinent History Respiratory Surgery: No Pertinent History GI Surgical History: Cholecystectomy Genitourinary Surgical Hx: No Pertinent History Musculskeletal Surgical Hx: No Pertinent History Female Surgical History: No Pertinent History Other Surgical History: cyst removed from rt axilla - Social History Smoking Status: Never smoker Exposure to second hand smoke: No Alcohol: None Drug Use: none - Social Determinants of Health Will the patient participate in the screening: Unable to obtain - Physical Exam Vital Signs: Vital Signs - 24 hr Temp Pulse Pulse Resp BP BP Pulse Ox 12/14/23 05:04 99 12/14/23 04:30 82 18 128/79 98 12/14/23 04:00 71 3 L 127/85 99 12/14/23 03:31 69 4 L 121/80 99 12/14/23 03:01 73 18 111/84 98 12/14/23 02:30 71 15 130/99 99 12/14/23 02:00 89 16 138/80 97 12/14/23 01:42 72 18 131/79 12/14/23 01:41 83 23 98 12/14/23 01:40 100 12/14/23 01:39 100 12/14/23 01:00 73 130/75 100 12/14/23 00:32 73 21 106/76 100 12/14/23 00:16 71 24 126/79 97 12/14/23 00:15 89 14 100 12/14/23 00:10 100 12/14/23 00:07 96 12/13/23 23:30 70 16 102/80 98 12/13/23 22:38 99 12/13/23 22:17 97.8 F 93 H 90 18 143/90 100 General Appearance: no apparent distress, alert Neurologic Exam: alert, oriented x 3, cooperative, normal mood/affect, nml cerebellar function, nml station & gait, sensation nml, No motor deficits Eye Exam: PERRL/EOMI, eyes nml inspection Ears, Nose, Throat Exam: normal ENT inspection, TMs normal, pharynx normal, moist mucous membranes Neck Exam: normal inspection, non-tender, supple, full range of motion Respiratory Exam: normal breath sounds, lungs clear, No respiratory distress Cardiovascular Exam: regular rate/rhythm, normal heart sounds, normal peripheral pulses Gastrointestinal/Abdomen Exam: soft, normal bowel sounds, No tenderness, No mass Back Exam: normal inspection, normal range of motion, No CVA tenderness, No vertebral tenderness Extremity Exam: normal inspection, normal range of motion, pelvis stable Skin Exam: normal color, warm, dry, No rash Lymphatic Exam: No adenopathy Results - Labs Lab/Micro Results: Lab Results-Last 24 Hours 12/13/23 12/13/23 12/13/23 Range/Units 22:38 22:50 22:50 WBC 7.0 (3.98-10.04) x10^3/uL RBC 4.60 (3.93-5.22) x10^6/uL Hgb 11.7 (11.2-15.7) g/dL Hct 37.5 (34.1-44.9) % MCV 81.5 (79.4-94.8) fL MCH 25.4 L (25.6-32.2) pg MCHC 31.2 L (32.2-35.5) g/dL RDW 16.6 H (11.7-14.4) % Plt Count 310 (182-369) x10^3/uL MPV 10.7 (9.4-12.3) fL Gran % 54.4 (34.0-71.1) % Immature Gran % (Auto) 0.1 (0.001-0.429) % Nucleat RBC Rel Count 0.0 (0.00-0.2) % Eos # (Auto) 0.31 (0.04-0.36) x10^3/uL Immature Gran # (Auto) 0.01 (0.001-0.031) x10^3u/L Absolute Lymphs (auto) 2.21 (1.18-3.74) x10^3/uL Absolute Monos (auto) 0.59 (0.24-0.86) x10^3/uL Absolute Nucleated RBC 0.00 (0.00-0.012) x10^3u/L Lymphocytes % 31.7 (19.3-51.7) % Monocytes % 8.5 (4.7-12.5) % Eosinophils % 4.4 (0.7-5.8) % Basophils % 0.9 (0.1-1.2) % Absolute Granulocytes 3.79 (1.56-6.13) x10^3/uL Basophils # 0.06 (0.01-0.08) x10^3/uL D-Dimer (0.0-0.50) mg/L Sodium 140 (135-145) mmol/L Potassium 3.5 (3.5-5.1) mmol/L Chloride 108 H (98-107) mmol/L Carbon Dioxide 22 (22-30) mmol/L Anion Gap 14.6 (5-15) MEQ/L BUN 13 (7-17) mg/dL Creatinine 0.99 (0.52-1.04) mg/dL Estimated GFR 72.1 ML/MIN Glucose 79 (74-106) mg/dL Calcium 9.2 (8.4-10.2) mg/dL Total Bilirubin 0.40 (0.2-1.3) mg/dL AST 31 (14-36) U/L ALT 27 (0-35) U/L Alkaline Phosphatase 57 (38-126) U/L Troponin I < 0.012 (0.000-0.033) ng/mL NT-Pro-B Natriuret Pep < 20.0 (<300) pg/mL Serum Total Protein 7.4 (6.3-8.2) g/dL Albumin 4.3 (3.5-5.0) g/dL Urine Color (Yellow) Urine Appearance (Clear) Urine pH (4.6-8.0) Ur Specific [place] (1.005-1.030) Urine Protein (Negative) Urine Glucose (UA) (Negative) mg/dL Urine Ketones (Negative) Urine Blood (Negative) Urine Nitrite (Negative) Urine Bilirubin (Negative) Urine Urobilinogen (0.2) mg/dL Ur Leukocyte Esterase (Negative) U Hyaline Cast (Auto) (0-2) /LPF Urine Microscopic RBC (0-5) /HPF Urine Microscopic WBC (0-5) /HPF Ur Epithelial Cells (None Seen) /HPF Urine Bacteria (None Seen) /HPF Urine Culture Reflexed (NO) 12/13/23 12/13/23 12/14/23 Range/Units 22:50 23:51 03:27 WBC (3.98-10.04) x10^3/uL RBC (3.93-5.22) x10^6/uL Hgb (11.2-15.7) g/dL Hct (34.1-44.9) % MCV (79.4-94.8) fL MCH (25.6-32.2) pg MCHC (32.2-35.5) g/dL RDW (11.7-14.4) % Plt Count (182-369) x10^3/uL MPV (9.4-12.3) fL Gran % (34.0-71.1) % Immature Gran % (Auto) (0.001-0.429) % Nucleat RBC Rel Count (0.00-0.2) % Eos # (Auto) (0.04-0.36) x10^3/uL Immature Gran # (Auto) (0.001-0.031) x10^3u/L Absolute Lymphs (auto) (1.18-3.74) x10^3/uL Absolute Monos (auto) (0.24-0.86) x10^3/uL Absolute Nucleated RBC (0.00-0.012) x10^3u/L Lymphocytes % (19.3-51.7) % Monocytes % (4.7-12.5) % Eosinophils % (0.7-5.8) % Basophils % (0.1-1.2) % Absolute Granulocytes (1.56-6.13) x10^3/uL Basophils # (0.01-0.08) x10^3/uL D-Dimer 0.50 (0.0-0.50) mg/L Sodium (135-145) mmol/L Potassium (3.5-5.1) mmol/L Chloride (98-107) mmol/L Carbon Dioxide (22-30) mmol/L Anion Gap (5-15) MEQ/L BUN (7-17) mg/dL Creatinine (0.52-1.04) mg/dL Estimated GFR ML/MIN Glucose (74-106) mg/dL Calcium (8.4-10.2) mg/dL Total Bilirubin (0.2-1.3) mg/dL AST (14-36) U/L ALT (0-35) U/L Alkaline Phosphatase (38-126) U/L Troponin I < 0.012 (0.000-0.033) ng/mL NT-Pro-B Natriuret Pep (<300) pg/mL Serum Total Protein (6.3-8.2) g/dL Albumin (3.5-5.0) g/dL Urine Color Yellow (Yellow) Urine Appearance Clear (Clear) Urine pH 7.5 (4.6-8.0) Ur Specific [place] 1.015 (1.005-1.030) Urine Protein Negative (Negative) Urine Glucose (UA) Negative (Negative) mg/dL Urine Ketones Negative (Negative) Urine Blood Negative (Negative) Urine Nitrite Negative (Negative) Urine Bilirubin Negative (Negative) Urine Urobilinogen 0.2 (0.2) mg/dL Ur Leukocyte Esterase Negative (Negative) U Hyaline Cast (Auto) NONE SEEN (0-2) /LPF Urine Microscopic RBC 3-5 (0-5) /HPF Urine Microscopic WBC 0-2 (0-5) /HPF Ur Epithelial Cells None Seen (None Seen) /HPF Urine Bacteria None Seen (None Seen) /HPF Urine Culture Reflexed NO (NO) - Radiology Impressions Radiology Exams & Impressions: Radiology Procedures Category Date Time Status CHEST WITH CONTRAST [CT] Stat Exams 12/14/23 00:15 Completed NECK WITH CONTRAST [CT] Stat Exams 12/14/23 00:15 Completed Assessment/Plan (1) Chest pain Current Visit: Yes Status: Acute Assessment & Plan: Unlikely to be cardiac in origin, negative trop x 2. Next one pending. Pain control with acetaminophen and ibuprofen as needed Code(s): R07.9 - CHEST PAIN, UNSPECIFIED Telemedicine Encounter - Telemedicine Encounter Telemedicine Encounter: "The entirety of this encounter was performed via Telemedicine" This visit was performed using real-time audio and video connection between my location and thepatients locationwith the assistance of a surrogateat the patients location. Written or verbal consent was obtained from the patient/guardian to perform this [facility]. Any patient questions regarding the telemedicine interaction were answered.
[2023-12-14] MEDS: TYLENOL 325 MG PO PRN (07:41)
[2023-12-14 08:03] VITALS: RESP 16; O2SAT 98
[2023-12-14] MEDS: ANTIVERT 25 MG PO ONE (10:42)
[2023-12-14] MEDS: Pain Relieving Rub TOP SCH (11:39)
--- NOTE | 2023-12-14 13:51 | PCM.DS ---
Discharge Summary Date of Admission: 12/14/23 05:10 Date of Discharge: 12/14/23 Admitting Physician: VIVIANE STEVEN MD Primary Care Provider: JULISA CLEMENTE Allergies Allergies No Known Drug Allergies Allergy (Verified 04/28/23 08:15) Hospital Summary - Hospital Course Hospital Course: is a 43 year old female presents with chest pain and neck pain last night. Trop negative x 3 negative. CTA of the chest and neck reviwed and non-co ncerning for acute injury.ED provider did not feel comfortable discharging the patient home due to active chest pain and so being admitted for one more trop check. No other complaints. Trop x3 negative. She has an OP MRI scheduled for next of her neck. This was ordered by her PCP prior to being admitted. She had some dizziness this AM and it has resolved with meclizine. Will d/c with this med as needed. Icy hot helpful for neck pain. She denies CP, SOB, Abd. pain, N/V/D and would like to d/c today. - Vitals & Intake/Output Vital Signs: Vital Signs Temperature 98.3 F 12/14/23 08:00 Pulse Rate 79 12/14/23 08:00 Respiratory Rate 16 12/14/23 08:00 Blood Pressure 107/58 12/14/23 08:00 O2 Sat by Pulse Oximetry 98 12/14/23 08:00 Intake & Output: Intake & Output 12/12/23 12/13/23 12/14/23 12/15/23 11:59 11:59 11:59 11:59 Intake Total 120 Balance 120 Weight 85.7 kg - Lab Result Diagrams: 12/13/23 22:38 12/13/23 22:50 Lab Results-Last 24 Hrs: Lab Results-Last 24 Hours 12/13/23 12/13/23 12/13/23 Range/Units 22:38 22:50 22:50 WBC 7.0 (3.98-10.04) x10^3/uL RBC 4.60 (3.93-5.22) x10^6/uL Hgb 11.7 (11.2-15.7) g/dL Hct 37.5 (34.1-44.9) % MCV 81.5 (79.4-94.8) fL MCH 25.4 L (25.6-32.2) pg MCHC 31.2 L (32.2-35.5) g/dL RDW 16.6 H (11.7-14.4) % Plt Count 310 (182-369) x10^3/uL MPV 10.7 (9.4-12.3) fL Gran % 54.4 (34.0-71.1) % Immature Gran % (Auto) 0.1 (0.001-0.429) % Nucleat RBC Rel Count 0.0 (0.00-0.2) % Eos # (Auto) 0.31 (0.04-0.36) x10^3/uL Immature Gran # (Auto) 0.01 (0.001-0.031) x10^3u/L Absolute Lymphs (auto) 2.21 (1.18-3.74) x10^3/uL Absolute Monos (auto) 0.59 (0.24-0.86) x10^3/uL Absolute Nucleated RBC 0.00 (0.00-0.012) x10^3u/L Lymphocytes % 31.7 (19.3-51.7) % Monocytes % 8.5 (4.7-12.5) % Eosinophils % 4.4 (0.7-5.8) % Basophils % 0.9 (0.1-1.2) % Absolute Granulocytes 3.79 (1.56-6.13) x10^3/uL Basophils # 0.06 (0.01-0.08) x10^3/uL D-Dimer (0.0-0.50) mg/L Sodium 140 (135-145) mmol/L Potassium 3.5 (3.5-5.1) mmol/L Chloride 108 H (98-107) mmol/L Carbon Dioxide 22 (22-30) mmol/L Anion Gap 14.6 (5-15) MEQ/L BUN 13 (7-17) mg/dL Creatinine 0.99 (0.52-1.04) mg/dL Estimated GFR 72.1 ML/MIN Glucose 79 (74-106) mg/dL Calcium 9.2 (8.4-10.2) mg/dL Total Bilirubin 0.40 (0.2-1.3) mg/dL AST 31 (14-36) U/L ALT 27 (0-35) U/L Alkaline Phosphatase 57 (38-126) U/L Troponin I < 0.012 (0.000-0.033) ng/mL NT-Pro-B Natriuret Pep < 20.0 (<300) pg/mL Serum Total Protein 7.4 (6.3-8.2) g/dL Albumin 4.3 (3.5-5.0) g/dL Urine Color (Yellow) Urine Appearance (Clear) Urine pH (4.6-8.0) Ur Specific [place] (1.005-1.030) Urine Protein (Negative) Urine Glucose (UA) (Negative) mg/dL Urine Ketones (Negative) Urine Blood (Negative) Urine Nitrite (Negative) Urine Bilirubin (Negative) Urine Urobilinogen (0.2) mg/dL Ur Leukocyte Esterase (Negative) U Hyaline Cast (Auto) (0-2) /LPF Urine Microscopic RBC (0-5) /HPF Urine Microscopic WBC (0-5) /HPF Ur Epithelial Cells (None Seen) /HPF Urine Bacteria (None Seen) /HPF Urine Culture Reflexed (NO) 12/13/23 12/13/23 12/14/23 Range/Units 22:50 23:51 03:27 WBC (3.98-10.04) x10^3/uL RBC (3.93-5.22) x10^6/uL Hgb (11.2-15.7) g/dL Hct (34.1-44.9) % MCV (79.4-94.8) fL MCH (25.6-32.2) pg MCHC (32.2-35.5) g/dL RDW (11.7-14.4) % Plt Count (182-369) x10^3/uL MPV (9.4-12.3) fL Gran % (34.0-71.1) % Immature Gran % (Auto) (0.001-0.429) % Nucleat RBC Rel Count (0.00-0.2) % Eos # (Auto) (0.04-0.36) x10^3/uL Immature Gran # (Auto) (0.001-0.031) x10^3u/L Absolute Lymphs (auto) (1.18-3.74) x10^3/uL Absolute Monos (auto) (0.24-0.86) x10^3/uL Absolute Nucleated RBC (0.00-0.012) x10^3u/L Lymphocytes % (19.3-51.7) % Monocytes % (4.7-12.5) % Eosinophils % (0.7-5.8) % Basophils % (0.1-1.2) % Absolute Granulocytes (1.56-6.13) x10^3/uL Basophils # (0.01-0.08) x10^3/uL D-Dimer 0.50 (0.0-0.50) mg/L Sodium (135-145) mmol/L Potassium (3.5-5.1) mmol/L Chloride (98-107) mmol/L Carbon Dioxide (22-30) mmol/L Anion Gap (5-15) MEQ/L BUN (7-17) mg/dL Creatinine (0.52-1.04) mg/dL Estimated GFR ML/MIN Glucose (74-106) mg/dL Calcium (8.4-10.2) mg/dL Total Bilirubin (0.2-1.3) mg/dL AST (14-36) U/L ALT (0-35) U/L Alkaline Phosphatase (38-126) U/L Troponin I < 0.012 (0.000-0.033) ng/mL NT-Pro-B Natriuret Pep (<300) pg/mL Serum Total Protein (6.3-8.2) g/dL Albumin (3.5-5.0) g/dL Urine Color Yellow (Yellow) Urine Appearance Clear (Clear) Urine pH 7.5 (4.6-8.0) Ur Specific [place] 1.015 (1.005-1.030) Urine Protein Negative (Negative) Urine Glucose (UA) Negative (Negative) mg/dL Urine Ketones Negative (Negative) Urine Blood Negative (Negative) Urine Nitrite Negative (Negative) Urine Bilirubin Negative (Negative) Urine Urobilinogen 0.2 (0.2) mg/dL Ur Leukocyte Esterase Negative (Negative) U Hyaline Cast (Auto) NONE SEEN (0-2) /LPF Urine Microscopic RBC 3-5 (0-5) /HPF Urine Microscopic WBC 0-2 (0-5) /HPF Ur Epithelial Cells None Seen (None Seen) /HPF Urine Bacteria None Seen (None Seen) /HPF Urine Culture Reflexed NO (NO) 12/14/23 Range/Units 06:51 WBC (3.98-10.04) x10^3/uL RBC (3.93-5.22) x10^6/uL Hgb (11.2-15.7) g/dL Hct (34.1-44.9) % MCV (79.4-94.8) fL MCH (25.6-32.2) pg MCHC (32.2-35.5) g/dL RDW (11.7-14.4) % Plt Count (182-369) x10^3/uL MPV (9.4-12.3) fL Gran % (34.0-71.1) % Immature Gran % (Auto) (0.001-0.429) % Nucleat RBC Rel Count (0.00-0.2) % Eos # (Auto) (0.04-0.36) x10^3/uL Immature Gran # (Auto) (0.001-0.031) x10^3u/L Absolute Lymphs (auto) (1.18-3.74) x10^3/uL Absolute Monos (auto) (0.24-0.86) x10^3/uL Absolute Nucleated RBC (0.00-0.012) x10^3u/L Lymphocytes % (19.3-51.7) % Monocytes % (4.7-12.5) % Eosinophils % (0.7-5.8) % Basophils % (0.1-1.2) % Absolute Granulocytes (1.56-6.13) x10^3/uL Basophils # (0.01-0.08) x10^3/uL D-Dimer (0.0-0.50) mg/L Sodium (135-145) mmol/L Potassium (3.5-5.1) mmol/L Chloride (98-107) mmol/L Carbon Dioxide (22-30) mmol/L Anion Gap (5-15) MEQ/L BUN (7-17) mg/dL Creatinine (0.52-1.04) mg/dL Estimated GFR ML/MIN Glucose (74-106) mg/dL Calcium (8.4-10.2) mg/dL Total Bilirubin (0.2-1.3) mg/dL AST (14-36) U/L ALT (0-35) U/L Alkaline Phosphatase (38-126) U/L Troponin I < 0.012 (0.000-0.033) ng/mL NT-Pro-B Natriuret Pep (<300) pg/mL Serum Total Protein (6.3-8.2) g/dL Albumin (3.5-5.0) g/dL Urine Color (Yellow) Urine Appearance (Clear) Urine pH (4.6-8.0) Ur Specific [place] (1.005-1.030) Urine Protein (Negative) Urine Glucose (UA) (Negative) mg/dL Urine Ketones (Negative) Urine Blood (Negative) Urine Nitrite (Negative) Urine Bilirubin (Negative) Urine Urobilinogen (0.2) mg/dL Ur Leukocyte Esterase (Negative) U Hyaline Cast (Auto) (0-2) /LPF Urine Microscopic RBC (0-5) /HPF Urine Microscopic WBC (0-5) /HPF Ur Epithelial Cells (None Seen) /HPF Urine Bacteria (None Seen) /HPF Urine Culture Reflexed (NO) - Radiology Exams Ordered Rad Exams-Entire Visit: Radiology Procedures Category Date Time Status CHEST WITH CONTRAST [CT] Stat Exams 12/14/23 00:15 Completed NECK WITH CONTRAST [CT] Stat Exams 12/14/23 00:15 Completed - Procedures and Test Procedures and Tests throughout Hospitalization: Therapy Orders & Screens 12/14/23 09:44 PT Eval & Treat (MD Order) ONCE Reason for Eval:: dizziness Diagnosis: ACS, chest pain Discharge Exam General Appearance: no apparent distress, alert Neurologic Exam: alert, oriented x 3, cooperative, normal mood/affect, nml cerebellar function, sensation nml, No motor deficits Eye Exam: PERRL, EOMI, eyes nml inspection Ears, Nose, Throat Exam: normal ENT inspection, pharynx normal, moist mucous mem branes Neck Exam: normal inspection, non-tender, supple, full range of motion, limited range of motion (left sided neck pain) Respiratory Exam: normal breath sounds, lungs clear, No respiratory distress Cardiovascular Exam: regular rate/rhythm, normal heart sounds Gastrointestinal/Abdomen Exam: soft, No tenderness, No mass Pelvic Exam: deferred Rectal Exam: deferred Back Exam: normal inspection, normal range of motion, No CVA tenderness, No vertebral tenderness Extremity Exam: normal inspection, normal range of motion Skin Exam: normal color, warm, dry Final Diagnosis/Problem List - Final Discharge Diagnosis/Problem (1) Neck pain Current Visit: Yes Status: Acute Assessment & Plan: - CT neck reviewed and negative for acute injury - MRI scheduled OP for next by PCP - icy hot to left side of neck helpful- continue OP PRN Code(s): M54.2 - CERVICALGIA (2) Chest pain Current Visit: Yes Status: Acute Assessment & Plan: - resolved today- denies pain - Trop x3 negative - EKG - Tele Code(s): R07.9 - CHEST PAIN, UNSPECIFIED (3) Dizziness Current Visit: Yes Status: Acute Assessment & Plan: - Meclizine X1 - Sxs resolved after meds - PT eval - Would benefit from OP PT if PCP will order OP after MRI of neck reviewed. Code(s): R42 - DIZZINESS AND GIDDINESS (4) Obesity (BMI 30.0-34.9) Current Visit: Yes Status: Chronic Assessment & Plan: - advised diet and exercise control Code(s): E66.811 - OBESITY, CLASS 1 - Discharge Discharge Date: 12/14/23 Disposition: Home, Self-Care Condition: Stable Prescriptions: Continue Topiramate 1 tab PO DAILY hydroCHLOROthiazide [Hydrochlorothiazide] 12.5 mg PO DAILY Additional Instructions: AFTER MRI DONE- CHECK WITH YOUR PRIMARY CARE PROVIDER ABOUT A PHYSICAL THERAPY ORDER IF APPROPRIATE AT THAT TIME Follow up with: JULISA CLEMENTE NP [Primary Care Provider] - 12/20/23 10:00 am
[2023-12-14 14:32] VITALS: BP 114/61; PULSE 78; TEMP 97.1
== END 2023-12-14 15:38 | disposition home or self-care (01) ==
LOC: ED 22:09 → MED SURG 12-14 05:10
PROVIDERS: ADMIT Student in an Organized Health Care Education/Training Program; ATTEND Student in an Organized Health Care Education/Training Program
DX: M54.2 Cervicalgia (principal); R07.9 Chest pain, unspecified; R42 Dizziness and giddiness; E66.811 Obesity, class 1; Z79.899 Other long term (current) drug therapy
CPT/HCPCS: 36000; 36415; 70491; 71260; 80053; 81001; 83880; 84484; 85025; 85379; 93005; 93041; 94760; 97161; 99285; Q3014; A9270-GY